=== PATIENT | female | born 1950 | race Asian ===

== ENCOUNTER 2023-11-28 09:54 | Inpatient (IN) | payer MEDICAID, OTHER ==
[~2023-11-28] VITALS: Ht 149.9 cm; Wt 40.3 kg
[2023-11-28 10:28] LABS: Urine Bacteria None Seen /hpf (None Seen); Urine WBC None Seen /hpf (0 - 5)
[2023-11-28 11:05] LABS: Basophils # (auto) 0.1 10 ^3/uL (0-0.2); Basophils % (auto) 1.2 % (0.0-2.0); Eosinophils # (auto) 0.1 10 ^3/uL (0-0.8); Eosinophils % (auto) 1.4 % (0.0-7.0); Hematocrit 41.7 % (36.0-46.0); Hemoglobin 13.9 g/dL (12.2-16.2); Lymphocytes # (auto) 1.8 10 ^3/uL (0.4-5.4); Lymphocytes % (auto) 34.8 % (10.0-50.0); Mean Corpuscular Hemoglobin 29.9 pg (28.0-32.0); Mean Corpuscular Hgb Conc. 33.4 g/dL (32.0-36.0); Mean Corpuscular Volume 89.7 fL (80.0-100.0); Monocytes # (auto) 0.4 10 ^3/uL (0-1.3); Monocytes % (auto) 7.2 % (0.0-12.0); Neutrophils # (auto) 2.9 10 ^3/uL (1.6-8.6); Neutrophils % (auto) 55.4 % (37.0-80.0); Red Blood Cells 4.65 10^6/uL (4.0-5.20); Red Cell Distribution Width 13.2 % (11.8-14.3); White Blood Cell 5.2 10^3/uL (4.4-10.8)
[2023-11-28 11:10] LABS: Alanine Aminotransferase 26 U/L (7-40); Alkaline Phosphatase 61 U/L (46-116); Anion Gap 9 (5-15); BUN/Creatinine Ratio 18.2 (10.0-20.0); Blood Urea Nitrogen 12 mg/dL (9-23); Calcium 9.5 mg/dL (8.7-10.4); Carbon Dioxide 27 mmol/L (20-30); Chloride 103 mmol/L (98-107); Glucose 187 mg/dL (74-106); Potassium 4.2 mmol/L (3.5-5.1); Sodium 139 mmol/L (136-145)
[2023-11-28 11:11] LABS: Albumin 4.6 g/dL (3.2-4.8); Aspartate Aminotransferase 22 U/L (13-40); Bilirubin, Total 1.2 mg/dL (0.2-1.0); Total Protein 7.2 g/dL (5.7-8.2)
[2023-11-28 11:19] LABS: Urine Blood Negative /uL (Negative); Urine Clarity Clear (Clear); Urine Color Colorless (Yellow); Urine Protein, UAD Negative (Negative); Urine Specific Gravity 1.005 (1.001-1.035); Urine Urobilinogen Normal (Negative); Urine pH 5.5 (5.0-9.0)
[2023-11-28] MEDS ORDERED: IRBE300T43 PO (13:28)
[2023-11-28] MEDS ORDERED: ISOS1TAB28 PO (13:28)
[2023-11-28] MEDS ORDERED: PANT40TA57 PO (13:28)
[2023-11-28] MEDS ORDERED: CARV3.1240 PO (13:28)
[2023-11-28] MEDS ORDERED: AMLO1TAB22 PO (13:28)
[2023-11-28] MEDS ORDERED: DILT-14 PO (13:28)
[2023-11-28] MEDS ORDERED: ROSU20TA56 PO (13:28)
[2023-11-28] MEDS ORDERED: MORPHINE SULFATE INJ 2 MG/ml SYRG IV PRN (13:30)
[2023-11-28] MEDS ORDERED: hydrALAZINE HCL 20 MG/ML VL IV PRN (13:30)
[2023-11-28] MEDS ORDERED: NITROGLYCERIN 0.4 MG SL TAB SL PRN (13:30)
[2023-11-28 13:53] LABS: Triglycerides 59 mg/dL (< 150)
[2023-11-28 13:54] LABS: LDL Cholesterol 59 mg/dL (< 100)
[2023-11-28 13:55] LABS: Cholesterol 144 mg/dL (< 200); HDL Cholesterol 68 mg/dL (40-59)
[2023-11-28] MEDS: CARVEDILOL 3.125 MG TAB PO SCH (22:00)
[2023-11-28] MEDS: ATORVASTATIN 20 MG TAB PO SCH (22:00)
[2023-11-29 04:23] LABS: Basophils # (auto) 0.1 10 ^3/uL (0-0.2); Basophils % (auto) 1.1 % (0.0-2.0); Eosinophils # (auto) 0.1 10 ^3/uL (0-0.8); Eosinophils % (auto) 1.8 % (0.0-7.0); Hematocrit 41.7 % (36.0-46.0); Hemoglobin 13.7 g/dL (12.2-16.2); Lymphocytes # (auto) 2.5 10 ^3/uL (0.4-5.4); Mean Corpuscular Hemoglobin 29.4 pg (28.0-32.0); Mean Corpuscular Volume 89.3 fL (80.0-100.0); Monocytes # (auto) 0.4 10 ^3/uL (0-1.3); Monocytes % (auto) 6.6 % (0.0-12.0); Neutrophils # (auto) 2.9 10 ^3/uL (1.6-8.6); Neutrophils % (auto) 48.5 % (37.0-80.0); Nucleated Red Blood Cells % 0.1 %; Red Blood Cells 4.67 10^6/uL (4.0-5.20); Red Cell Distribution Width 12.8 % (11.8-14.3)
[2023-11-29 04:50] LABS: Alanine Aminotransferase 21 U/L (7-40); Alkaline Phosphatase 54 U/L (46-116); Anion Gap 6 (5-15); BUN/Creatinine Ratio 16.7 (10.0-20.0); Blood Urea Nitrogen 11 mg/dL (9-23); Calcium 9.4 mg/dL (8.5-10.1); Carbon Dioxide 29 mmol/L (20-30); Chloride 105 mmol/L (98-107); Glucose 100 mg/dL (74-106); Potassium 4.4 mmol/L (3.5-5.1); Sodium 140 mmol/L (136-145)
[2023-11-29 04:51] LABS: Albumin 4.6 g/dL (3.2-4.8); Bilirubin, Total 1.2 mg/dL (0.2-1.0); Total Protein 7.4 g/dL (5.7-8.2)
[2023-11-29 04:55] LABS: Aspartate Aminotransferase 20 U/L (13-40)
[2023-11-29 09:07] VITALS: BP 150/64; PULSE 56; RESP 17; TEMP 98.2; O2SAT 99
[2023-11-29 09:16] VITALS: BP 150/64; PULSE 56; RESP 17; TEMP 98.2; O2SAT 99
[2023-11-29] MEDS: LOSARTAN POTASSIUM 50 MG TAB PO SCH (09:52)
[2023-11-29] MEDS: amLODIPine BESYLATE 5 MG TAB PO SCH (09:53)
[2023-11-29] MEDS: ISOSORBIDE MONONITRATE ER 60 MG TAB PO SCH (09:54)
[2023-11-29] MEDS ORDERED: dilTIAZem 120MG ER CAP PO SCH (10:00)
[2023-11-29] MEDS: PANTOPRAZOLE 40 MG TAB PO SCH (10:03)
[2023-11-29] MEDS: ASPirin 81 mg TAB PO SCH (10:03)
[2023-11-29] MEDS: ENOXAPARIN SOD 30 MG/0.3 ML SYRINGE SC SCH (10:04)
[2023-11-29] MEDS ORDERED: SUCR1TAB31 PO (11:01)
[2023-11-29 11:57] VITALS: BP 118/54; PULSE 61; RESP 17; TEMP 98.2; O2SAT 99
== END 2023-11-29 12:35 | disposition home or self-care (01) | DRG 392 ==
LOC: ER 09:54 → TELE 13:28 → TELE-E-ADS 11-29 08:57
PROVIDERS: ADMIT Registered Nurse; ATTEND Internal Medicine
DX: K21.9 Gastro-esophageal reflux disease without esophagitis (principal); I16.0 Hypertensive urgency; E78.5 Hyperlipidemia, unspecified; M81.0 Age-related osteoporosis without current pathological fracture; I25.10 Atherosclerotic heart disease of native coronary artery without angina pectoris; E07.9 Disorder of thyroid, unspecified; R73.9 Hyperglycemia, unspecified; Z95.5 Presence of coronary angioplasty implant and graft; Z79.899 Other long term (current) drug therapy
CPT/HCPCS: 36415; 71045; 80053; 80061; 81001; 83036; 84443; 84484; 85025; 93005; 93306; G0378

== ENCOUNTER 2024-03-02 13:53 | Emergency (ER) | payer OTHER ==
[~2024-03-02] VITALS: Ht 149.9 cm; Wt 38.0 kg
[~2024-03-02 13:53] MED LIST: AMLO1TAB22 PO; CARV3.1240 PO; DILT-14 PO; IRBE300T43 PO; ISOS1TAB28 PO; PANT40TA57 PO; ROSU20TA56 PO; SUCR1TAB31 PO
[2024-03-02 14:00] VITALS: BP 185/77; RESP 16; O2SAT 95
[2024-03-02 14:33] LABS: Basophils # (auto) 0 10 ^3/uL (0-0.2); Eosinophils # (auto) 0.1 10 ^3/uL (0-0.8); Eosinophils % (auto) 1.1 % (0.0-7.0); Hematocrit 44.2 % (36.0-46.0); Hemoglobin 14.8 g/dL (12.2-16.2); Lymphocytes # (auto) 1.7 10 ^3/uL (0.4-5.4); Lymphocytes % (auto) 34.4 % (10.0-50.0); Mean Corpuscular Hemoglobin 30.4 pg (28.0-32.0); Mean Corpuscular Hgb Conc. 33.4 g/dL (32.0-36.0); Mean Corpuscular Volume 90.9 fL (80.0-100.0); Monocytes # (auto) 0.4 10 ^3/uL (0-1.3); Monocytes % (auto) 7.2 % (0.0-12.0); Neutrophils # (auto) 2.8 10 ^3/uL (1.6-8.6); Neutrophils % (auto) 56.3 % (37.0-80.0); Platelet Count (auto) 180 10^3/uL (140-450); Red Blood Cells 4.86 10^6/uL (4.0-5.20); Red Cell Distribution Width 13.3 % (11.8-14.3)
[2024-03-02 14:51] LABS: Alanine Aminotransferase 15 U/L (7-40); Albumin 4.9 g/dL (3.2-4.8); Alkaline Phosphatase 67 U/L (46-116); Anion Gap 8 (5-15); Aspartate Aminotransferase 17 U/L (13-40); BUN/Creatinine Ratio 16.9 (10.0-20.0); Blood Urea Nitrogen 12 mg/dL (9-23); Calcium 9.6 mg/dL (8.7-10.4); Carbon Dioxide 29 mmol/L (20-30); Chloride 101 mmol/L (98-107); Glucose 128 mg/dL (74-106); Potassium 3.6 mmol/L (3.5-5.1); Sodium 138 mmol/L (136-145)
[2024-03-02 14:51] LABS: Urine Bacteria None Seen /hpf (None Seen)
[2024-03-02 14:52] LABS: Bilirubin, Total 1.5 mg/dL (0.2-1.0); Total Protein 7.4 g/dL (5.7-8.2)
[2024-03-02 15:13] LABS: Urine Blood Negative /uL (Negative); Urine Clarity Clear (Clear); Urine Color Colorless (Yellow); Urine Protein, UAD Negative (Negative); Urine Specific Gravity 1.004 (1.001-1.035); Urine Urobilinogen Normal (Negative); Urine WBC 1 /hpf (0 - 5); Urine pH 7.5 (5.0-9.0)
[2024-03-02 15:21] VITALS: PULSE 56
== END 2024-03-02 18:01 | disposition home or self-care (01) ==
LOC: ER 13:53
DX: R07.89 Other chest pain (principal); I10 Essential (primary) hypertension; Z79.899 Other long term (current) drug therapy
CPT/HCPCS: 36415; 71046; 80053; 81001; 83735; 84484; 85025; 93005

== ENCOUNTER 2024-05-18 13:22 | Emergency (ER) | payer OTHER ==
[~2024-05-18] VITALS: Ht 149.9 cm; Wt 139.7 kg
[2024-05-18 13:49] VITALS: TEMP 98.6
--- NOTE | 2024-05-18 14:10 | ED.PDOC ---
HPI Comments A 73 YEAR OLD FEMALE PRESENTS TO THE ED WITH COMPLAINT OF HIGH BLOOD PRESSURE. PATIENT STATES SHE HAS NOTICED HER BLOOD PRESSURE HAS BEEN HIGHER THAN USUAL FOR THE PAST 1 WEEK. PATIENT NOTES SHE HAS BEEN ANXIOUS AND HAS HAD MILD DIZZINESS WITH A HEADACHE OFF AN ON FOR THE PAST 1 WEEK. PATIENT REPORTS SHE HAS BEEN UNDER A LOT OF STRESS RECENTLY DUE TO HER SON GOING MISSING OVER THE LAST 1 WEEK. PATIENT DENIES SI, HI, FEVER, CHEST PAIN, SHORTNESS OF BREATH, ABDOMINAL PAIN, NAUSEA, VOMITING, OR OTHER COMPLAINTS. NO OTHER SYMPTOMS OR MODIFYING FACTORS AT THIS TIME. Chief Complaint: High Blood Pressure Time Seen by MD: 14:05 Reviewed Notes: Nurses Notes, Medications, Allergies Allergies: Coded Allergies: NO KNOWN ALLERGIES (Unverified , 11/28/23) Home Meds Active Scripts Sucralfate (CARAFATE) 1 Gm Tab, 1 GM PO BID for 30 Days, #60 TAB 1 Refill Prov:IDALIA ZAMBRANO MD 11/29/23 Reported Medications Diltiazem HCl Coated Beads (Diltiazem HCl ER) 120 Mg Cap, 1 CAP PO DAILY 11/28/23 Carvedilol (Carvedilol) 3.125 Mg Tab, 1 TAB PO BID 11/28/23 Pantoprazole Sodium Sesquihydr (Pantoprazole Sodium Dr) 40 Mg Tab, 1 TAB PO DAILY 11/28/23 Rosuvastatin Calcium (Rosuvastatin Calcium) 20 Mg Tab, 1 TAB PO HS 11/28/23 Irbesartan (IRBESARTAN) 300 Mg Tab, 1 TAB PO DAILY 11/28/23 Amlodipine Besylate (Amlodipine Besylate) 5 Mg Tab, 1 TAB PO DAILY 11/28/23 Isosorbide Mononitrate (Isosorbide Mononitrate Er) 30 Mg Tab, 1 TAB PO DAILY 11/28/23 Information Source: Patient Mode of Arrival: Ambulatory Severity: Moderate Timing: Hours Duration: Since onset, Intermittent, Days Prehospital treatment: None Quality: Aching Onset: At Rest Cardiac Risk Factors: Hyperlipidemia, HTN PE Risk Factors: None History of: Similar pain in past, None Modifying Factors: Nothing Associated Signs and Symptoms: Other (HIGH BLOOD PRESSURE) Past Medical History PAST MEDICAL HISTORY: Anxiety, High Lipids, HTN Surgical History: Denies all surgeries 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 Family History Family History: Reviewed,noncontributory to illness Social History Smoker: Non-Smoker Alcohol: Denies ETOH Use Drugs: Denies Drug Use Lives In: Home Constitutional: reports: others (ANXIETY ); denies: chills, diaphoresis, fatigue, fever, malaise, sweats, weakness EENTM: denies: blurred vision, double vision, ear bleeding, ear discharge, ear drainage, ear pain, ear ringing, eye pain, eye redness, hearing loss, mouth pain, mouth swelling, nasal discharge, nose bleeding, nose congestion, nose pain, photophobia, tearing, throat pain, throat swelling, voice changes, others Respiratory: denies: cough, hemoptysis, orthopnea, SOB at rest, shortness of breath, SOB with excertion, stridor, wheezing, others Cardiovascular: denies: chest pain, dizzy spells, diaphoresis, Dyspnea on exertion, edema, irregular heart beat, left arm pain, lightheadedness, palpitat ions, PND, syncope, others Gastrointestinal: denies: abdomen distended, abdominal pain, blood streaked bow els, constipated, diarrhea, dysphagia, difficulty swallowing, hematemesis, melena, nausea, poor appetite, poor fluid intake, rectal bleeding, rectal pain, vomiting, others Genitourinary: denies: abnormal vagina bleeding, burning, dyspareunia, dysuria, flank pain, frequency, hematuria, incontinence, pain, , vagina discharge, urgency, others Neurological: reports: dizziness, headache; denies: fainting, left sided num bness, left sided weakness, numbness, paresthesia, pre-existing deficit, right sided numbness, right sided weakness, seizure, speech problems, tingling, tremors, weakness, others Musculoskeletal: denies: back pain, gout, joint pain, joint swelling, muscle pain, muscle stiffness, neck pain, others Integumetry: denies: bruises, change in color, change in hair/nails, dryness, laceration, lesions, lumps, rash, wounds, others Allergic/Immunocompromised: denies: Difficulty Healing, Frequent Infections, Hives, Itching, others Hematologic/Lymphatic: denies: anemia, blood clots, easy bleeding, easy bruising, swollen glands, others Endocrine: denies: excessive hunger, excessive sweating, excessive thirst, excessive urination, flushing, intolerance to cold, intolerance to heat, unexplained weight gain, unexplained weight loss, others Psychiatric: reports: anxiety; denies: bipolar disorder, depression, hopeless, panic disorder, schizophrenia, sleepless, suicidal, others All Other Systems: Reviewed and Negative Physical Exam General Appearance: No Apparent Distress, Normal, Other (ANXIOUS) HEENT: Normal ENT Inspection, PERRL/EOMI Neck: Full Range of Motion, Non-Tender, Normal, Normal Inspection Respiratory: Chest Non-Tender, Lungs Clear, No Accessory Muscle Use, No Respiratory Distress, Normal Breath Sounds Cardiovascular: No Edema, No JVD, No Murmur, No Gallop, Normal Peripheral Pulses, Regular Rate/Rhythm Breast Exam: Deferred Gastrointestinal: No Organomegaly, Non Tender, No Pulsatile Mass, Normal Bowel Sounds, Soft Genitalia: Deferred Pelvic: Deferred Rectal: Deferred Extremities: No calf tenderness, Normal capillary refill, Normal inspection, Normal range of motion, Non-tender, No pedal edema Musculoskeletal : Apperance: Normal Neurologic: Alert, adon II-XII nml as Tested, No Motor Deficits, Normal Affect, Normal Mood, No Sensory Deficits Cerebellar Function: Normal Reflexes: Normal Skin: Dry, Normal Color, Warm Peripheral Pulses: 2+ carotid (R), 2+ carotid (L) Lymphatic: No Adenopathy Was a procedure done? Was a procedure done?: No CP Differential Dx Differential Diagnosis: Anxiety / Panic Attack, Hyperventilation Differential Diagnosis: HTN Accelerated, Other (UNCONTROLLED HYPERTENSION) X-Ray, Labs, Meds, VS Vital Signs Date Time Temp Pulse Resp B/P (MAP) Pulse Ox O2 Delivery O2 Flow Rate FiO2 05/18/24 15:11 52 16 165/68 (100) 98 05/18/24 13:49 98.6 68 14 196/97 (130) 99 98.6 05/18/24 13:49 68 14 99 Room Air 05/18/24 13:42 98.6 68 14 197/97 (130) 99 Lab Test 05/18/24 14:33 05/18/24 14:11 Range/Units Urine Color Light-yellow Yellow Urine Clarity Clear Clear Urine pH 7.0 5.0-9.0 Urine Specific [place] 1.002 1.001-1.035 Urine Protein Negative Negative Urine Ketones Negative Negative Urine Blood Negative Negative /uL Urine Nitrite Negative Negative Urine Bilirubin Negative Negative Urine Urobilinogen Normal Negative mg/dL Urine Leukocyte Esterase Negative Negative /uL Urine RBC <1 0 - 4 /hpf Urine WBC <1 0 - 5 /hpf Urine Squamous Epithelial Cells Few <5 /hpf Urine Bacteria None seen None Seen /hpf Urine Glucose Normal Normal mg/dL White Blood Count 5.3 4.4-10.8 10^3/uL Red Blood Count 4.66 4.0-5.20 10^6/uL Hemoglobin 13.7 12.2-16.2 g/dL Hematocrit 41.7 36.0-46.0 % Mean Corpuscular Volume 89.5 80.0-100.0 fL Mean Corpuscular Hemoglobin 29.3 28.0-32.0 pg Mean Corpuscular Hemoglobin Concent 32.8 32.0-36.0 g/dL Red Cell Distribution Width 12.9 11.8-14.3 % Platelet Count 185 140-450 10^3/uL Mean Platelet Volume 7.7 6.9-10.8 fL Neutrophils (%) (Auto) 53.4 37.0-80.0 % Lymphocytes (%) (Auto) 37.5 10.0-50.0 % Monocytes (%) (Auto) 6.9 0.0-12.0 % Eosinophils (%) (Auto) 1.2 0.0-7.0 % Basophils (%) (Auto) 1.0 0.0-2.0 % Neutrophils # (Auto) 2.9 1.6-8.6 10 ^3/uL Lymphocytes # (Auto) 2.0 0.4-5.4 10 ^3/uL Monocytes # (Auto) 0.4 0-1.3 10 ^3/uL Eosinophils # (Auto) 0.1 0-0.8 10 ^3/uL Basophils # (Auto) 0.1 0-0.2 10 ^3/uL Nucleated Red Blood Cells 0.1 % Sodium Level 141 136-145 mmol/L Potassium Level 4.5 3.5-5.1 mmol/L Chloride Level 103 98-107 mmol/L Carbon Dioxide Level 30 20-31 mmol/L Anion Gap 8 5-15 Blood Urea Nitrogen 10 9-23 mg/dL Creatinine 0.86 0.550-1.02 mg/dL Glomerular Filtration Rate Calc 72 >90 mL/min BUN/Creatinine Ratio 11.6 10.0-20.0 Serum Glucose 106 74-106 mg/dL Calcium Level 10.0 8.7-10.4 mg/dL Troponin I High Sensitivity 3 L </=34 ng/L EXAM: CT HEAD WITHOUT CONTRAST INDICATION: HTN AND HEAD PAIN TECHNIQUE: CT of the head without intravenous contrast. Radiation Dose Information: CT Dose: CTDI volume is 53.06 mGy. Dose-length product is 939.56 mGy*cm The dose indicators for CT are the volume Computed Tomography (CT) Dose Index (CTDIvol) and the Dose Length Product (DLP), and are measured in units of mGy and mGy-cm, respectively. These indicators are not patient dose, but values generated from the CT scanner acquisition factors. The report includes radiation exposure data for exposures received during this examination. COMPARISON: None FINDINGS: There is no evidence of acute intracranial hemorrhage, extra-axial collection, mass effect, midline shift, herniation or hydrocephalus. The ventricles, sulci and cisterns are age appropriate. The flower-white differentiation is intact. Patchy periventricular and subcortical white matter hypoattenuation is nonspecific but may be related to small vessel ischemic disease. 15 mm polyp or inclusion cyst left maxillary sinus sinuses and mastoid air cells are clear. The surrounding soft tissues and osseous structures are unremarkable. IMPRESSION: 1. No acute intracranial hemorrhage. 2. No CT findings of territorial ischemia. 3. 15 mm inclusion cyst or polyp left maxillary sinus. ATED BY: DANNY TAVERAS Jr., DO DICTATED DATE/TIME: 05/18/24 1430 SIGNED BY: DANNY TAVERAS Jr., SIGNED DATE/TIME: 05/18/24 1430 CC: X-Ray, Labs, Meds, VS Comment LABS ORDERED: CBC, BMP, TROPONIN, UA REVIEWED AND INTERPRETED RESULTS: NORMAL INDEPENDENT HISTORIANS: NONE DISCUSSED TREATMENT AND RESULTS WITH MEDICAL PERSONNEL. PATIENT'S BLOOD PRESSURE WAS NOTED TO HAVE DECREASED WHEN RECHECKED. I HAVE DISCUSSED IMAGING AND LAB RESULTS WITH PATIENT. PATIENT ALERT AND ORIENTED AT THIS TIME AND IS SAFE TO DISCHARGE UNDER DIAGNOSIS OF HYPERTENSION AND ANXIETY REACTION. PATIENT IS INSTRUCTED TO FOLLOW UP WITH THEIR PCP IN 1-2 DAYS. THE PATIENT FULLY UNDERSTANDS THEIR RESULTS AND ARE AWARE THEY NEED TO FOLLOW UP WITH THEIR PCP FOR FURTHER EVALUATION IF THEIR SYMPTOMS PERSIST. Images Reviewed?: Images reviewed and evaluated by me Time of 1ST Reevaluation: 15:20 Reevaluation 1ST: Improved Patient Education/Counseling: Diagnosis, Treatment, Need For Follow Up Family Education/Counseling: Diagnosis, Treatment, Need For Follow Up Medical Screening: No EMC Exist At This Time Departure 1 Departure Time of Disposition: 15:30 Impression: Primary Impression: Hypertension Qualified Codes: I10 - Essential (primary) hypertension Additional Impression: Anxiety reaction Disposition: HOME / SELF CARE / HOMELESS Condition: Stable Additional Instructions: FOLLOW-UP WITH PCP IN 1 TO 2 DAYS. RETURN TO ED FOR ANY NEW OR WORSENING SYMPTOMS. Discharged With: Self, Relative Critical Care Note Critical Care Time?: No Stability Stability form required: No Heart Score Heart Score: Heart Score Response (Comments) Value History Slightly Suspicious 0 EKG Normal 0 Age >65 2 Risk Factors No known risk factors 0 Troponin Normal limit 0 Total 2 I personally scribed for RIGOBERTO SAMUEL PA ([email or web address]) on 05/18/24 at 14:10. Electronically submitted by Sam Mccann ([email or web address]). I personally scribed for RIGOBERTO SAMUEL PA ([email or web address]) on 05/18/24 at 14:36. Electronically submitted by Sam Mccann ([email or web address]). I personally scribed for KOKO SAMUELA PA ([email or web address]) on 05/18/24 at 15:33. Electronically submitted by Sam Mccann ([email or web address]). I personally scribed for RIGOBERTO SAMUEL PA ([email or web address]) on 05/18/24 at 15:46. Electronically submitted by Sam Mccann ([email or web address]). RIGOBERTO SAMUEL May 18, 2024 14:10
[2024-05-18 14:22] LABS: Basophils # (auto) 0.1 10 ^3/uL (0-0.2); Eosinophils # (auto) 0.1 10 ^3/uL (0-0.8); Eosinophils % (auto) 1.2 % (0.0-7.0); Hematocrit 41.7 % (36.0-46.0); Hemoglobin 13.7 g/dL (12.2-16.2); Lymphocytes % (auto) 37.5 % (10.0-50.0); Mean Corpuscular Hemoglobin 29.3 pg (28.0-32.0); Mean Corpuscular Hgb Conc. 32.8 g/dL (32.0-36.0); Mean Corpuscular Volume 89.5 fL (80.0-100.0); Monocytes # (auto) 0.4 10 ^3/uL (0-1.3); Monocytes % (auto) 6.9 % (0.0-12.0); Neutrophils # (auto) 2.9 10 ^3/uL (1.6-8.6); Neutrophils % (auto) 53.4 % (37.0-80.0); Nucleated Red Blood Cells % 0.1 %; Platelet Count (auto) 185 10^3/uL (140-450); Red Blood Cells 4.66 10^6/uL (4.0-5.20); Red Cell Distribution Width 12.9 % (11.8-14.3); White Blood Cell 5.3 10^3/uL (4.4-10.8)
--- NOTE | 2024-05-18 14:32 | DVH ---
EXAM: CT HEAD WITHOUT CONTRAST INDICATION: HTN AND HEAD PAIN TECHNIQUE: CT of the head without intravenous contrast. Radiation Dose Information: CT Dose: CTDI volume is 53.06 mGy. Dose-length product is 939.56 mGy*cm The dose indicators for CT are the volume Computed Tomography (CT) Dose Index (CTDIvol) and the Dose Length Product (DLP), and are measured in units of mGy and mGy-cm, respectively. These indicators are not patient dose, but values generated from the CT scanner acquisition factors. The report includes radiation exposure data for exposures received during this examination. COMPARISON: None FINDINGS: There is no evidence of acute intracranial hemorrhage, extra-axial collection, mass effect, midline s hift, herniation or hydrocephalus. The ventricles, sulci and cisterns are age appropriate. The flower-white differentiation is intact. Patchy periventricular and subcortical white matter hypoattenuation is nonspecific but may be related to small vessel ischemic disease. 15 mm polyp or inclusion cyst left maxillary sinus sinuses and mastoid air cells are clear. The surrounding soft tissues and osseous structures are unremarkable. IMPRESSION: 1. No acute intracranial hemorrhage. 2. No CT findings of territorial ischemia. 3. 15 mm inclusion cyst or polyp left maxillary sinus.
[2024-05-18 14:35] LABS: Urine Bacteria None Seen /hpf (None Seen)
[2024-05-18 14:42] LABS: Chloride 103 mmol/L (98-107); Potassium 4.5 mmol/L (3.5-5.1); Sodium 141 mmol/L (136-145)
[2024-05-18 14:43] LABS: Anion Gap 8 (5-15); Carbon Dioxide 30 mmol/L (20-31)
[2024-05-18 14:48] LABS: BUN/Creatinine Ratio 11.6 (10.0-20.0); Blood Urea Nitrogen 10 mg/dL (9-23); Glucose 106 mg/dL (74-106)
[2024-05-18 15:01] LABS: Urine Blood Negative /uL (Negative); Urine Clarity Clear (Clear); Urine Protein, UAD Negative (Negative); Urine Specific Gravity 1.002 (1.001-1.035); Urine Urobilinogen Normal (Negative); Urine WBC <1 /hpf (0 - 5)
[2024-05-18 15:02] LABS: Urine Color Light-Yellow (Yellow)
[2024-05-18 15:11] VITALS: BP 165/68; PULSE 52; RESP 16; O2SAT 98
--- NOTE | 2024-05-22 12:25 | ECG ---
[facility] Test Date: 2024-05-18 Test Time: 13:36:20 Pat Name: JAIME LEÓN Department: ED Room: Gender: F Credit Administrator: DICK : 1950 Requested By: RIGOBERTO SAMUEL Order Number: [id number] Reading MD: Cesar Monique Measurements Intervals [place] Rate: 64 P: 65 [place]: 162 QRS: 72 QRSD: 76 T: -23 QT: 379 QTc: 391 Interpretive Statements Sinus rhythm Probable LVH with secondary repol abnrm Anterior Q waves, possibly due to LVH Electronically Signed On 05-24-2024 13:34:48 PST by Cesar Monique Please click the below link to view image of tracing.
--- NOTE | 2024-05-26 13:04 | ECG ---
[facility] Test Date: 2024-05-18 Test Time: 14:57:04 Pat Name: JAIME LEÓN Department: ERFT Room: Gender: F Chiropractic Doctor: [id number] : 1950 Requested By: RIGOBERTO SAMUEL Order Number: [id number] Reading MD: Measurements Intervals [place] Rate: 57 P: 69 [place]: 164 QRS: 68 QRSD: 87 T: 57 QT: 443 QTc: 432 Interpretive Statements Sinus rhythm Consider left ventricular hypertrophy Please click the below link to view image of tracing.
--- NOTE | 2024-05-26 13:04 | ECG ---
[facility] Test Date: 2024-05-18 Test Time: 14:57:58 Pat Name: JAIME LEÓN Department: ERFT Room: Gender: F Relationship Consultant: [id number] : 1950 Requested By: RIGOBERTO SAMUEL Order Number: [id number] Reading MD: Measurements Intervals [place] Rate: 53 P: 68 [place]: 164 QRS: 68 QRSD: 86 T: 46 QT: 444 QTc: 417 Interpretive Statements Sinus rhythm Consider left ventricular hypertrophy Please click the below link to view image of tracing.
== END 2024-05-18 15:59 | disposition home or self-care (01) ==
LOC: ER 13:22
DX: F41.1 Generalized anxiety disorder (principal); I10 Essential (primary) hypertension; E78.5 Hyperlipidemia, unspecified; Z79.899 Other long term (current) drug therapy
CPT/HCPCS: 36415; 70450; 80048; 81001; 84484; 85025; 93005

== ENCOUNTER 2024-07-05 07:02 | Inpatient (IN) | payer OTHER ==
[~2024-07-05] VITALS: Ht 149.9 cm; Wt 40.2 kg
--- NOTE | 2024-07-05 07:36 | ED.PDOC ---
HPI Comments 73 year old female presents to the ED with chief complaint of chest pain. Patient reports that she has been experiencing left sided chest pain with radiation to the back and left arm since last night. Patient relays that her pain made it difficult to sleep as it lasted all night. Patient denies any N/V, SOB, cough, fever, chills, headache, numbness, or weakness. Chief Complaint: Chest Pain Time Seen by MD: 07:33 Reviewed Notes: Nurses Notes, Medications, Allergies Allergies: Coded Allergies: NO KNOWN ALLERGIES (Unverified , 11/28/23) Home Meds Active Scripts Sucralfate (CARAFATE) 1 Gm Tab, 1 GM PO BID for 30 Days, #60 TAB 1 Refill Prov:IDALIA ZAMBRANO MD 11/29/23 Reported Medications Diltiazem HCl Coated Beads (Diltiazem HCl ER) 120 Mg Cap, 1 CAP PO DAILY 11/28/23 Carvedilol (Carvedilol) 3.125 Mg Tab, 1 TAB PO BID 11/28/23 Pantoprazole Sodium Sesquihydr (Pantoprazole Sodium Dr) 40 Mg Tab, 1 TAB PO DAILY 11/28/23 Rosuvastatin Calcium (Rosuvastatin Calcium) 20 Mg Tab, 1 TAB PO HS 11/28/23 Irbesartan (IRBESARTAN) 300 Mg Tab, 1 TAB PO DAILY 11/28/23 Amlodipine Besylate (Amlodipine Besylate) 5 Mg Tab, 1 TAB PO DAILY 11/28/23 Isosorbide Mononitrate (Isosorbide Mononitrate Er) 30 Mg Tab, 1 TAB PO DAILY 11/28/23 Information Source: Patient Mode of Arrival: Ambulatory Severity: Moderate Timing: Hours Duration: Since onset Prehospital treatment: None Location: Chest (L) Radiation: Back, Arm (L) Quality: Stabbing Onset: At Rest Cardiac Risk Factors: HTN PE Risk Factors: None History of: Similar pain in past Associated Signs and Symptoms: None Past Medical History PAST MEDICAL HISTORY: Anxiety, GERD, High Lipids, HTN, Thyroid Surgical History: Denies all surgeries 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 STORE MANAGER Hx Family History Family History: Reviewed,noncontributory to illness Social History Smoker: Non-Smoker Alcohol: Denies ETOH Use Drugs: Denies Drug Use Lives In: Home Constitutional: denies: chills, diaphoresis, fatigue, fever, malaise, sweats, weakness, others EENTM: denies: blurred vision, double vision, ear bleeding, ear discharge, ear drainage, ear pain, ear ringing, eye pain, eye redness, hearing loss, mouth pain, mouth swelling, nasal discharge, nose bleeding, nose congestion, nose pain, photophobia, tearing, throat pain, throat swelling, voice changes, others Respiratory: denies: cough, hemoptysis, orthopnea, SOB at rest, shortness of breath, SOB with excertion, stridor, wheezing, others Cardiovascular: reports: chest pain; denies: dizzy spells, diaphoresis, Dyspnea on exertion, edema, irregular heart beat, left arm pain, lightheadedness, palpitations, PND, syncope, others Gastrointestinal: denies: abdomen distended, abdominal pain, blood streaked bowels, constipated, diarrhea, dysphagia, difficulty swallowing, hematemesis, melena, nausea, poor appetite, poor fluid intake, rectal bleeding, rectal pain, vomiting, others Genitourinary: denies: abnormal vagina bleeding, burning, dyspareunia, dysuria, flank pain, frequency, hematuria, incontinence, pain, , vagina discharge, urgency, others Neurological: denies: dizziness, fainting, headache, left sided numbness, left sided weakness, numbness, paresthesia, pre-existing deficit, right sided numbness, right sided weakness, seizure, speech problems, tingling, tremors, weakness, others Musculoskeletal: denies: back pain, gout, joint pain, joint swelling, muscle pain, muscle stiffness, neck pain, others Integumetry: denies: bruises, change in color, change in hair/nails, dryness, laceration, lesions, lumps, rash, wounds, others Allergic/Immunocompromised: denies: Difficulty Healing, Frequent Infections, Hives, Itching, others Hematologic/Lymphatic: denies: anemia, blood clots, easy bleeding, easy bruising, swollen glands, others Endocrine: denies: excessive hunger, excessive sweating, excessive thirst, excessive urination, flushing, intolerance to cold, intolerance to heat, unexplained weight gain, unexplained weight loss, others Psychiatric: denies: anxiety, bipolar disorder, depression, hopeless, panic disorder, schizophrenia, sleepless, suicidal, others All Other Systems: Reviewed and Negative Physical Exam General Appearance: Moderate Distress, Thin HEENT: Normal ENT Inspection, PERRL/EOMI Neck: Full Range of Motion, Non-Tender, Normal, Normal Inspection Respiratory: Chest Non-Tender, Lungs Clear, No Accessory Muscle Use, No Respiratory Distress, Normal Breath Sounds Cardiovascular: No Edema, No JVD, No Murmur, No Gallop, Normal Peripheral Pulses, Regular Rate/Rhythm Breast Exam: Deferred Gastrointestinal: No Organomegaly, Non Tender, No Pulsatile Mass, Normal Bowel Sounds, Soft Genitalia: Deferred Pelvic: Deferred Rectal: Deferred Extremities: No calf tenderness, Normal capillary refill, Normal inspection, Normal range of motion, Non-tender, No pedal edema Musculoskeletal : Apperance: Normal Neurologic: Alert, operating cost clerk II-XII nml as Tested, No Motor Deficits, Normal Affect, Normal Mood, No Sensory Deficits Cerebellar Function: Normal Reflexes: Normal Skin: Dry, Normal Color, Warm Peripheral Pulses: 3+ Radial (R), 3+ Radial (L) Lymphatic: No Adenopathy Was a procedure done? Was a procedure done?: No CP Differential Dx Differential Diagnosis: A-fib, A-Flutter, Angina, Anxiety / Panic Attack, Atrial Dysrhythmia, Electrolyte Disorder X-Ray, Labs, Meds, VS Vital Signs Date Time Temp Pulse Resp B/P (MAP) Pulse Ox O2 Delivery O2 Flow Rate FiO2 07/05/24 07:08 64 07/05/24 07:05 97.5 84 18 161/106 (124) 97 Lab Test 07/05/24 07:15 Range/Units Troponin I High Sensitivity Pending Patient alert. Complaining of chest pain. Blood pressure elevated. Saturation pristine on room air. Continues to have chest pain. History of GERD. Reviewed her previous visit. Was given aspirin. Was given clonidine. Explained to the patient. Continue cardiac monitoring. EKG reviewed does not show any acute changes. Time of 1ST Reevaluation: 08:33 Reevaluation 1ST: Unchanged Patient Education/Counseling: Diagnosis, Treatment Family Education/Counseling: No Family Present Additional Information I reviewed the following notes from patient's past medical encounters: 05/18/24 for uncontrolled HTN The following tests were ordered, and results were reviewed by me: CXR, CBC, BMP, UA, Troponin, EKG Additional Information was gathered from interviewing the following independent historians: None I reviewed and agreed with the following test results read by other providers: CXR I discussed treatment and results with medical personnel. Departure 1 Departure Time of Disposition: 07:42 Impression: Primary Impression: Chest pain of unknown etiology Additional Impressions: Uncontrolled diabetes mellitus Qualified Codes: E13.65 - Other specified diabetes mellitus with hyperglycemia Uncontrolled hypertension Disposition: ADMITTED INPATIENT Admit to: Med Surg Condition: Guarded Critical Care Note Critical Care Time?: Yes (45 min-critical care time only) Stability Stability form required: No Heart Score Heart Score: Heart Score Response (Comments) Value History Highly Suspicious 2 EKG Normal 0 Age >65 2 Risk Factors >3 or Hx ASHD 2 Troponin Normal limit 0 Total 6 I personally scribed for YURI GONZALES MD ([email or web address]) on 07/05/24 at 07:36. Electronically submitted by Alfie Celis ([email or web address]). YURI GONZALES MD Jul 05, 2024 07:36
[2024-07-05] MEDS: ASPirin 325 MG TAB PO ONE (08:21)
[2024-07-05] MEDS: cloNIDine HCL 0.1 MG TAB PO ONE (08:22)
[2024-07-05 08:57] LABS: Basophils # (auto) 0 10 ^3/uL (0-0.2); Basophils % (auto) 0.8 % (0.0-2.0); Eosinophils # (auto) 0.1 10 ^3/uL (0-0.8); Eosinophils % (auto) 2.1 % (0.0-7.0); Hematocrit 44.1 % (36.0-46.0); Hemoglobin 14.5 g/dL (12.2-16.2); Lymphocytes # (auto) 2.6 10 ^3/uL (0.4-5.4); Mean Corpuscular Hemoglobin 29.5 pg (28.0-32.0); Mean Corpuscular Hgb Conc. 32.9 g/dL (32.0-36.0); Mean Corpuscular Volume 89.5 fL (80.0-100.0); Monocytes # (auto) 0.3 10 ^3/uL (0-1.3); Monocytes % (auto) 6.4 % (0.0-12.0); Neutrophils # (auto) 2.4 10 ^3/uL (1.6-8.6); Neutrophils % (auto) 43.7 % (37.0-80.0); Nucleated Red Blood Cells % 0.2 %; Platelet Count (auto) 192 10^3/uL (140-450); Red Blood Cells 4.93 10^6/uL (4.0-5.20); Red Cell Distribution Width 13.2 % (11.8-14.3); White Blood Cell 5.5 10^3/uL (4.4-10.8)
[2024-07-05 10:05] LABS: Urine Bacteria None Seen /hpf (None Seen)
[2024-07-05 10:27] LABS: Urine Blood Negative /uL (Negative); Urine Clarity Clear (Clear); Urine Color Colorless (Yellow); Urine Protein, UAD Negative (Negative); Urine Specific Gravity 1.009 (1.001-1.035); Urine Squamous Epithelial Cell FEW /hpf (<5); Urine Urobilinogen Normal (Negative); Urine WBC <1 /hpf (0 - 5)
[2024-07-05 11:19] LABS: Chloride 103 mmol/L (98-107); Potassium 3.9 mmol/L (3.5-5.1); Sodium 139 mmol/L (136-145)
[2024-07-05 11:20] LABS: Anion Gap 6 (5-15); Calcium 9.9 mg/dL (8.7-10.4); Carbon Dioxide 30 mmol/L (20-31)
[2024-07-05 11:25] LABS: BUN/Creatinine Ratio 13.3 (10.0-20.0); Blood Urea Nitrogen 10 mg/dL (9-23)
[2024-07-05 11:28] LABS: Glucose 118 mg/dL (74-106)
[2024-07-05 12:55] VITALS: RESP 16; O2SAT 98
[2024-07-05] MEDS ORDERED: MORPHINE SULFATE 4 MG/ML SYR/VIAL IV PRN (13:15)
[2024-07-05] MEDS ORDERED: NITROGLYCERIN 0.4 MG SL TAB SL PRN ×2 (13:15)
[2024-07-05] MEDS ORDERED: ONDANSETRON HCL 4 MG/2 ML VIAL IV PRN (13:15)
[2024-07-05] MEDS ORDERED: MORPHINE SULFATE INJ 2 MG/ml SYRG IV PRN (13:15)
--- NOTE | 2024-07-05 13:21 | DVHHP2 ---
History of Present Illness Reason for Visit: Chest pain History of Present Illness Yohana Parson is a 73-year-old female with past medical history of CAD status post PCI in [address] [facility], hypertension, hyperlipidemia, osteoporosis, anxiety, GERD, hypothyroidism who presents to the ED today for chest pain that started at 3:00 a.m.. Patient reports that the chest pain radiates her left arm causes numbness and also reports neck pain. She reports the chest pain being 4/10 stabbing and intermittent in nature. She states that there are no triggering or alleviating factors. She does state that she was unable to sleep last night. She denies any recent sick contacts any recent illnesses, denies shortness of breath, nausea, vomiting, diarrhea, abdominal pain, lightheadedness, fever, chills, and dizziness. Patient reports that she takes amlodipine, carvedilol, and isosorbide 1 necessary but not consistently. Cardiovascular: CAD, HTN, hyperipidemia GI: GERD Psych: Anxiety Endocrine: Hypothyroidism, Osteoporosis Past Surgical History: Other Past Surgical History PCI in 2016 Family History: DM, Other (Aunt and cousins with diabetes) Smoke: No ALCOHOL: none Drugs: None Lives: with Family Domestic Violence: Neg Review of Systems Constitutional: No: Fever, Chills, Sweats, Weakness, Malaise, Other Eyes: No: Pain, Vision change, Conjunctivae inflammation, Eyelid inflammation, Other, Redness ENT: No: Ear pain, Ear discharge, Nose pain, Nose discharge, Nose congestion, Mouth pain, Mouth swelling, Throat pain, Throat swelling, Other Respiratory: No: Cough, Dry, Shortness of breath, SOB with excertion, Wheezing, Hemoptysis, Pleuritic Pain, Sputum, Wheezing, Other Cardiovascular: Chest Pain; No: Palpitations, Orthopnea, Paroxysmal Noc. Dyspnea, Edema, Lt Headedness, Other Gastrointestinal: No: Nausea, Vomiting, Abdominal Pain, Diarrhea, Constipation, Melena, Hematochezia, Other Genitourinary: No Dysuria, No Frequency, No Incontinence, No Hematuria, No Retention, No Other Musculoskeletal: neck pain, arm pain; No: other, shoulder pain, back pain, hand pain, leg pain, foot pain Skin: No: Rash, Lesions, Jaundice, Bruising, Other Neurological: No: Weakness, Numbness, Incoordination, Change in speech, Confusion, Seizures, Other Allergies: Coded Allergies: NO KNOWN ALLERGIES (Unverified , 11/28/23) Exam Vital Signs Vital Signs Date Time Temp Pulse Resp B/P (MAP) Pulse Ox O2 Delivery O2 Flow Rate FiO2 07/05/24 12:55 16 98 Room Air* 0 21 07/05/24 12:50 98.0 58 117/69 (85) 98.0 General Appearance: Alert, Oriented X3, Cooperative, No acute distress HEENT: Atraumatic, PERRLA, EOMI, Mucous membr. moist/pink Respiratory: Clear to auscultation, Normal air movement Cardiovascular: Normal S1, Normal S2, No murmurs Abdominal: Normal bowel sounds, Soft, No tenderness, No hepatospenomegaly, No masses Extremities: No clubbing, No cyanosis, No edema, Normal pulses, No tenderness/swelling Skin: No rashes, No breakdown, No significant lesion Neuro: Normal gait, Normal speech, Strength at 5/5 X4 ext, Normal tone, Sensation intact Psych/Mental Status: Mental status NL, Mood NL Labs/Xrays Labs Test 07/05/24 11:50 07/05/24 10:19 07/05/24 08:37 07/05/24 08:27 Range/Units POC Glucose 144 H 70-106 mg/dl Troponin I High Sensitivity 3 L </=34 ng/L White Blood Count 5.5 4.4-10.8 10^3/uL Red Blood Count 4.93 4.0-5.20 10^6/uL Hemoglobin 14.5 12.2-16.2 g/dL Hematocrit 44.1 36.0-46.0 % Mean Corpuscular Volume 89.5 80.0-100.0 fL Mean Corpuscular Hemoglobin 29.5 28.0-32.0 pg Mean Corpuscular Hemoglobin Concent 32.9 32.0-36.0 g/dL Red Cell Distribution Width 13.2 11.8-14.3 % Platelet Count 192 140-450 10^3/uL Mean Platelet Volume 8.4 6.9-10.8 fL Neutrophils (%) (Auto) 43.7 37.0-80.0 % Lymphocytes (%) (Auto) 47.0 10.0-50.0 % Monocytes (%) (Auto) 6.4 0.0-12.0 % Eosinophils (%) (Auto) 2.1 0.0-7.0 % Basophils (%) (Auto) 0.8 0.0-2.0 % Neutrophils # (Auto) 2.4 1.6-8.6 10 ^3/uL Lymphocytes # (Auto) 2.6 0.4-5.4 10 ^3/uL Monocytes # (Auto) 0.3 0-1.3 10 ^3/uL Eosinophils # (Auto) 0.1 0-0.8 10 ^3/uL Basophils # (Auto) 0 0-0.2 10 ^3/uL Nucleated Red Blood Cells 0.2 % Urine Color Colorless Yellow Urine Clarity Clear Clear Urine pH 7.0 5.0-9.0 Urine Specific [place] 1.009 1.001-1.035 Urine Protein Negative Negative Urine Ketones Negative Negative Urine Blood Negative Negative /uL Urine Nitrite Negative Negative Urine Bilirubin Negative Negative Urine Urobilinogen Normal Negative mg/dL Urine Leukocyte Esterase Negative Negative /uL Urine RBC 1 0 - 4 /hpf Urine WBC <1 0 - 5 /hpf Urine Squamous Epithelial Cells Few <5 /hpf Urine Bacteria None seen None Seen /hpf Urine Glucose Normal Normal mg/dL Test 07/05/24 08:13 Range/Units Sodium Level 139 136-145 mmol/L Potassium Level 3.9 3.5-5.1 mmol/L Chloride Level 103 98-107 mmol/L Carbon Dioxide Level 30 20-31 mmol/L Anion Gap 6 5-15 Blood Urea Nitrogen 10 9-23 mg/dL Creatinine 0.75 0.550-1.02 mg/dL Glomerular Filtration Rate Calc 85 >90 mL/min BUN/Creatinine Ratio 13.3 10.0-20.0 Serum Glucose 118 H 74-106 mg/dL Calcium Level 9.9 8.7-10.4 mg/dL Assessment/Plan Assessment/Plan Assessment/Plan: Atypical chest pain rule out ACS History of CAD status post PCI in 2016 at [facility] in [place] Bradycardia UA negative Clonidine Aspirin EKG Troponin negative x3 ACS protocol Aspirin Statin MISTY Lipid panel TSH UDS Last echo 11/29/2023 EF 55% Echo ordered Labs A.m. labs Cardiology consult cxr VINCE score 5 Heart score 6 moderate Chronic hypertension Continue home medications Chronic hyperlipidemia Continue home medications Chronic osteoporosis Continue home medications Chronic anxiety Continue home medications History of GERD Continue home medications History of hypothyroidism Continue home medications FEN/PPX Diet HL DVT prophylaxis not indicated patient ambulating PUD prophylaxis - protonix Admit to tele Home medications reconciled Discussed plan of care with patient and nurse Plan discussed with: Patient My Orders Orders - BENI DESAI Procedure Category Date Status Time Admit ADMIT 07/05/24 Verified 13:01 Code Status CODE 07/05/24 Verified 13:01 Vital Signs VIKASH 07/05/24 Verified 13:01 Bioanalyst VIKASH 07/05/24 Verified 13:01 Cardiac DIET 07/05/24 Verified Diet-2gna,Lofat,Lochol Lunch Aspirin Tablet PHA 07/06/24 Verified 10:00 Lipitor 40mg Hs PHA 07/05/24 Verified Hi-Intensity 22:00 Morphine Sulfate PHA 07/05/24 Verified Injection 13:15 Acetaminophen Tablet PHA 07/05/24 Verified (Tylenol Tablet) 13:15 Complete Blood Count LAB 07/06/24 Verified 04:00 Comprehensive LAB 07/06/24 Verified Metabolic Panel 04:00 Echo 2d Mode Cardiac US 07/05/24 Verified DOP 13:01 Nitroglycerin PHA 07/05/24 Verified Sublingual (Ntrostat 13:15 Ondansetron Hcl PHA 07/05/24 Verified (Zofran) 13:15 Electrocardigram EKG 07/06/24 Verified 04:00 Troponin-I Hs LAB 07/05/24 Verified 13:01 Cardiac VIKASH 07/05/24 Verified Rehabilitation - Outpa Nitroglycerin PHA 07/05/24 Verified Sublingual (Ntrostat 13:15 Morphine Sulfate PHA 07/05/24 Verified Injection 13:15 Stat Ekg For Chest [facility] 07/05/24 Verified Pain 13:01 Notify Md Of Changes [facility] 07/05/24 Verified From Base 13:01 Slp Teacher For VIKASH 07/05/24 Verified 24 Hours 13:01 Emergency Dysrhythmia VIKASH 07/05/24 Verified Protocol 13:01 Rhythm Strips Once [facility] 07/05/24 Verified Every Shift 13:01 Oxygen By Nasal RT 07/05/24 Verified Cannula 13:01 Lipid Panel LAB 07/05/24 Verified 13:01 Thyroid Stimulating LAB 07/05/24 Verified Hormone 13:01 Drug Screen LAB 07/05/24 Verified 13:01 Date of Service: Jul 05, 2024 Billing Provider: THON,SALINA K MANAGER INVENTORY MANAGEMENT Common Visit Codes: 59120-[id number] INP/OBS CARE (HIGH) BENI DESAI MANAGER INVENTORY MANAGEMENT Jul 05, 2024 13:21
--- NOTE | 2024-07-05 13:38 | DVH ---
EXAM: XY CHEST XRAY 1 VIEW Indication: chest pain Technique: Single frontal view of the chest was obtained Comparison: XY CHEST PORTABLE on DOS: 11/28/23 FINDINGS: Lines and Tubes: None Lungs: No focal consolidation. Pleura: No effusion. No pneumothorax. Cardiomediastinal contours: Unremarkable Bones: No acute osseous abnormality. IMPRESSION: No acute cardiopulmonary disease.
[2024-07-05 13:49] LABS: Triglycerides 99 mg/dL (< 150)
[2024-07-05 13:50] LABS: LDL Cholesterol 70 mg/dL (< 100)
[2024-07-05 13:51] LABS: Cholesterol 168 mg/dL (< 200)
[2024-07-05 13:53] LABS: HDL Cholesterol 85 mg/dL (40-59)
[2024-07-05 15:15] LABS: Amphetamine Screen, Urine Neg (NEGATIVE); Barbiturate Scree,Urine Neg (NEGATIVE); Benzodiazephine Screen, Urine Neg (NEGATIVE); Cannabinoid Screen, Urine Neg (NEGATIVE); Cocaine Screen, Urine Neg (NEGATIVE); Opiate Scree,Urine Neg (NEGATIVE); Phencyclidine Screen, Urine Neg (NEGATIVE)
[2024-07-05 21:00] VITALS: BP 130/42; PULSE 54; RESP 15; TEMP 98.1; O2SAT 98
[2024-07-05 21:36] VITALS: PULSE 58; RESP 16; O2SAT 100
[2024-07-05 21:44] VITALS: BP 134/45; PULSE 54; RESP 16; TEMP 98.1; O2SAT 98
[2024-07-05] MEDS: ATORVASTATIN 20 MG TAB PO SCH (22:57)
[2024-07-06] VITALS (8 sets, daily range): BP systolic 120–153; BP diastolic 40–58; PULSE 49–67; RESP 16–18; TEMP 97.6–98; O2SAT 97–99
--- NOTE | 2024-07-06 03:17 | ECG ---
[facility] Test Date: 2024-07-05 Test Time: 07:08:02 Pat Name: JAIME LEÓN Department: ER Room: [facility]1T A Gender: F Program Instructor: DENNY : 1950 Requested By: YURI GONZALES Order Number: [id number] Reading MD: Cesar Monique Measurements Intervals [place] Rate: 64 P: 0 W[place]: 0 QRS: 71 QRSD: 76 T: -66 QT: 399 QTc: 412 Interpretive Statements Atrial flutter with predominant 4:1 AV block Consider left ventricular hypertrophy Anterior Q waves, possibly due to LVH Borderline T abnormalities, inferior leads Baseline wander in lead(s) V4 Electronically Signed On 07-09-2024 15:32:58 PST by Cesar Monique Please click the below link to view image of tracing.
--- NOTE | 2024-07-06 03:17 | ECG ---
[facility] Test Date: 2024-07-05 Test Time: 08:04:32 Pat Name: JAIME LEÓN Department: ER Room: [facility]1T A Gender: F Production Roustabout: EDGARD : 1950 Requested By: YURI GONZALES Order Number: [id number] Reading MD: Cesar Monique Measurements Intervals [place] Rate: 55 P: 64 MI: 160 QRS: 82 QRSD: 79 T: 70 QT: 407 QTc: 390 Interpretive Statements Sinus rhythm Borderline right axis deviation Consider left ventricular hypertrophy Anterior Q waves, possibly due to LVH Electronically Signed On 07-09-2024 15:33:12 PST by Cesar Monique Please click the below link to view image of tracing.
[2024-07-06 06:54] LABS: Basophils # (auto) 0.1 10 ^3/uL (0-0.2); Basophils % (auto) 1.2 % (0.0-2.0); Eosinophils # (auto) 0.1 10 ^3/uL (0-0.8); Eosinophils % (auto) 1.8 % (0.0-7.0); Hematocrit 40.8 % (36.0-46.0); Hemoglobin 13.5 g/dL (12.2-16.2); Lymphocytes # (auto) 2.1 10 ^3/uL (0.4-5.4); Lymphocytes % (auto) 40.7 % (10.0-50.0); Mean Corpuscular Hemoglobin 29.6 pg (28.0-32.0); Mean Corpuscular Volume 89.8 fL (80.0-100.0); Monocytes # (auto) 0.4 10 ^3/uL (0-1.3); Monocytes % (auto) 7.6 % (0.0-12.0); Neutrophils # (auto) 2.5 10 ^3/uL (1.6-8.6); Neutrophils % (auto) 48.7 % (37.0-80.0); Platelet Count (auto) 176 10^3/uL (140-450); Red Blood Cells 4.54 10^6/uL (4.0-5.20); Red Cell Distribution Width 13.2 % (11.8-14.3); White Blood Cell 5.1 10^3/uL (4.4-10.8)
[2024-07-06 07:18] LABS: Alanine Aminotransferase 16 U/L (7-40); Albumin 4.3 g/dL (3.2-4.8); Alkaline Phosphatase 49 U/L (46-116); Anion Gap 5 (5-15); Aspartate Aminotransferase 19 U/L (13-40); Blood Urea Nitrogen 15 mg/dL (9-23); Calcium 9.6 mg/dL (8.7-10.4); Carbon Dioxide 31 mmol/L (20-31); Chloride 104 mmol/L (98-107); Glucose 83 mg/dL (74-106); Potassium 4.2 mmol/L (3.5-5.1); Sodium 140 mmol/L (136-145)
[2024-07-06 07:19] LABS: Total Protein 6.8 g/dL (5.7-8.2)
[2024-07-06 07:20] LABS: Bilirubin, Total 1.5 mg/dL (0.2-1.0)
--- NOTE | 2024-07-06 08:24 | ECG ---
[facility] Test Date: 2024-07-05 Test Time: 10:37:42 Pat Name: JAIME LEÓN Department: ER Room: [facility]1T A Gender: F Assistant Professor: EDGARD : 1950 Requested By: YURI GONZALES Order Number: [id number] Reading MD: Cesar Monique Measurements Intervals [place] Rate: 51 P: 79 HI: 160 QRS: 79 QRSD: 79 T: 52 QT: 446 QTc: 411 Interpretive Statements Sinus rhythm Consider left ventricular hypertrophy Anterior Q waves, possibly due to LVH Electronically Signed On 07-09-2024 15:35:18 PST by Cesar Monique Please click the below link to view image of tracing.
[2024-07-06] MEDS: ASPirin 81 mg TAB PO SCH (10:00)
[2024-07-06] MEDS: PANTOPRAZOLE 40 MG/10 ML VIAL INJ IV SCH (10:10)
--- NOTE | 2024-07-06 10:13 | DVHINCON2 ---
Date Seen: Jul 06, 2024 Referring Physician MARIANA Lynn Reason for Consultation Chest pain History of Present Illness This is a pleasant 73-year-old female who presented to the emergency room with a chief complaint of chest pain. Localizes her chest pain to the epigastric area radiating to the left inframammary/back areas, sharp in nature, intermittent, non provoked, and associated with left arm numbness and left-sided neck pain. She underwent multiple 12 lead electrocardiogram revealing a normal sinus rhythm. Serial troponin levels are negative. Per patient, she was told at a previous facility to undergo a cardiac catheterization in the setting of persistent chest pain. Reports she last saw her primary pin inserter regulator mid year 2023 and has not had any stress test/cardiac catheterizations since 2015. Of note, the patient complains of symptomatic bradycardia including generalized weakness. She was recently prescribed carvedilol and Cardizem. Significant medical history includes coronary artery disease status post PTCA including one ESTIVEN on ASA at [facility] in [place] on 2015, hypertension, dyslipidemia, hypothyroidism, prediabetes, osteoporosis, GERD, and anxiety. Past Medical History Past medical history reviewed. No other significant than mentioned above. Past Surgical History PTCA including one ESTIVEN, 2015 Cataract surgery, 2023 Family History: Diabetes during G8 MOTHER Family History Family history reviewed. Social History Denies the use of illicit drugs, alcohol, or tobacco use. Allergies: Coded Allergies: NO KNOWN ALLERGIES (Unverified , 11/28/23) Home Meds Active Scripts Sucralfate (CARAFATE) 1 Gm Tab, 1 GM PO BID for 30 Days, #60 TAB 1 Refill Prov:IDALIA ZAMBRANO MD 11/29/23 Reported Medications Diltiazem HCl Coated Beads (Diltiazem HCl ER) 120 Mg Cap, 1 CAP PO DAILY 11/28/23 Carvedilol (Carvedilol) 3.125 Mg Tab, 1 TAB PO BID 11/28/23 Pantoprazole Sodium Sesquihydr (Pantoprazole Sodium Dr) 40 Mg Tab, 1 TAB PO DA ALEXANDER 11/28/23 Rosuvastatin Calcium (Rosuvastatin Calcium) 20 Mg Tab, 1 TAB PO HS 11/28/23 Irbesartan (IRBESARTAN) 300 Mg Tab, 1 TAB PO DAILY 11/28/23 Amlodipine Besylate (Amlodipine Besylate) 5 Mg Tab, 1 TAB PO DAILY 11/28/23 Isosorbide Mononitrate (Isosorbide Mononitrate Er) 30 Mg Tab, 1 TAB PO DAILY 11/28/23 Home Meds Home medications reviewed. Current Medications Current Medications Medications (Trade) Dose Ordered Sig/Robel Route PRN Reason Start Time Stop Time Status Last Admin Aspirin 81 mg DAILY PO 07/06/24 10:00 Atorvastatin Calcium (Lipitor) 40 mg HS PO 07/05/24 22:00 07/05/24 22:57 Morphine Sulfate 2 mg Q30MP PRN IV FOR CHEST PAIN 07/05/24 13:15 UNV Acetaminophen (Tylenol Tablet) 650 mg Q6HP PRN PO MILD PAIN (1-3 PAIN SCALE) 07/05/24 13:15 Nitroglycerin (Ntrostat Sublingual) 0.4 mg Q5MINP PRN SL FOR CHEST PAIN 07/05/24 13:15 UNV Ondansetron HCl (Zofran) 4 mg Q4HP PRN IV NAUSEA / VOMITING 07/05/24 13:15 Nitroglycerin (Ntrostat Sublingual) 0.4 mg Q5MINP PRN SL FOR CHEST PAIN 07/05/24 13:15 Morphine Sulfate 2 mg Q30M PRN IV FOR CHEST PAIN 07/05/24 13:15 Pantoprazole Sodium (Protonix) 40 mg DAILY IV 07/06/24 10:00 07/06/24 10:10 Review of Systems Constitutional: No symptom reported Ears, Nose, & Throat: No symptom reported Eyes: No symptom reported Neurological: No symptoms reported Pulmonary/Respiratory: No symptom reported Cardiovascular: Chest pain Gastrointestinal: No symptom reported Genitourinary: No symptom reported Musculoskeletal: No symptom reported Skin: No symptom reported Psychiatric: No symptom reported Endocrine: No symptom reported Hemotologic/Lymphatic: No symptom reported Vital Signs Vital Signs Date Time Temp Pulse Resp B/P (MAP) Pulse Ox O2 Delivery O2 Flow Rate FiO2 07/06/24 09:00 97.9 53 18 125/50 (75) 98 97.9 07/05/24 21:44 Room Air* 0 21 Physical Exam General Appearance: Cooperative. Well developed. Thin. In no acute distress Head Exam: Normal inspection Neck Exam: Normal inspection. Non-tender. Normal alignment Pulmonary/Respiratory: Chest non-tender. Clear bilateral breath sounds Cardiovascular/Chest: Regular rate and rhythm. S1, S2. NSR. No murmurs. No JVD. Peripheral Pulses: 2+ Radial (R). 2+ Radial (L). 2+ Pedal (R). 2+ Pedal (L) Abdominal Exam: Normal bowel sounds. Soft. Nontender. No hepatospenomegaly. No masses Ankle Exam: Negative ankle edema Lower extremities: Negative lower extremity edema Neuro/Mental Status: A&O x4. Coherent Thoughts/Psych: Normal thought pattern. Appropriate mood and affect. Good judgement and insight Appearance: In no acute distress Skin Exam: Normal inspection. Normal color. Warm. Dry Labs/Diagnostic Data Labs Test 07/06/24 06:29 07/05/24 11:50 07/05/24 10:19 07/05/24 08:27 Range/Units White Blood Count 5.1 4.4-10.8 10^3/uL Red Blood Count 4.54 4.0-5.20 10^6/uL Hemoglobin 13.5 12.2-16.2 g/dL Hematocrit 40.8 36.0-46.0 % Mean Corpuscular Volume 89.8 80.0-100.0 fL Mean Corpuscular Hemoglobin 29.6 28.0-32.0 pg Mean Corpuscular Hemoglobin Concent 33.0 32.0-36.0 g/dL Red Cell Distribution Width 13.2 11.8-14.3 % Platelet Count 176 140-450 10^3/uL Mean Platelet Volume 7.9 6.9-10.8 fL Neutrophils (%) (Auto) 48.7 37.0-80.0 % Lymphocytes (%) (Auto) 40.7 10.0-50.0 % Monocytes (%) (Auto) 7.6 0.0-12.0 % Eosinophils (%) (Auto) 1.8 0.0-7.0 % Basophils (%) (Auto) 1.2 0.0-2.0 % Neutrophils # (Auto) 2.5 1.6-8.6 10 ^3/uL Lymphocytes # (Auto) 2.1 0.4-5.4 10 ^3/uL Monocytes # (Auto) 0.4 0-1.3 10 ^3/uL Eosinophils # (Auto) 0.1 0-0.8 10 ^3/uL Basophils # (Auto) 0.1 0-0.2 10 ^3/uL Nucleated Red Blood Cells 0.0 % Sodium Level 140 136-145 mmol/L Potassium Level 4.2 3.5-5.1 mmol/L Chloride Level 104 98-107 mmol/L Carbon Dioxide Level 31 20-31 mmol/L Anion Gap 5 5-15 Blood Urea Nitrogen 15 9-23 mg/dL Creatinine 0.75 0.550-1.02 mg/dL Glomerular Filtration Rate Calc 85 >90 mL/min BUN/Creatinine Ratio 20.0 10.0-20.0 Serum Glucose 83 74-106 mg/dL Calcium Level 9.6 8.7-10.4 mg/dL Total Bilirubin 1.5 H 0.2-1.0 mg/dL Aspartate Amino Transferase (AST) 19 13-40 U/L Alanine Aminotransferase (ALT) 16 7-40 U/L Alkaline Phosphatase 49 46-116 U/L Total Protein 6.8 5.7-8.2 g/dL Albumin 4.3 3.2-4.8 g/dL POC Glucose 144 H 70-106 mg/dl Troponin I High Sensitivity 3 L </=34 ng/L Urine Color Colorless Yellow Urine Clarity Clear Clear Urine pH 7.0 5.0-9.0 Urine Specific [place] 1.009 1.001-1.035 Urine Protein Negative Negative Urine Ketones Negative Negative Urine Blood Negative Negative /uL Urine Nitrite Negative Negative Urine Bilirubin Negative Negative Urine Urobilinogen Normal Negative mg/dL Urine Leukocyte Esterase Negative Negative /uL Urine RBC 1 0 - 4 /hpf Urine WBC <1 0 - 5 /hpf Urine Squamous Epithelial Cells Few <5 /hpf Urine Bacteria None seen None Seen /hpf Urine Glucose Normal Normal mg/dL Test 07/05/24 07:15 07/05/24 06:27 Range/Units Hemoglobin A1c 6.1 H <5.7 % A1C Triglycerides Level 99 < 150 mg/dL Cholesterol Level 168 < 200 mg/dL LDL Cholesterol 70 < 100 mg/dL HDL Cholesterol 85 H 40-59 mg/dL Thyroid Stimulating Hormone (TSH) 1.53 0.55-4.78 uIU/mL Urine Opiates Screen Neg NEGATIVE Urine Fentanyl Screen Neg NEGATIVE Urine Barbiturates Screen Neg NEGATIVE Urine Phencyclidine Screen Neg NEGATIVE Urine Amphetamines Screen Neg NEGATIVE Urine Benzodiazepines Screen Neg NEGATIVE Urine Cocaine Screen Neg NEGATIVE Urine Cannabinoids Screen Neg NEGATIVE Assessment Chest pain rule out progressive coronary artery disease Coronary artery disease status post PTCA x1 ESTIVEN (2016) Symptomatic bradycardia, on BB and CCB Rule out structural heart disease Hypertension Dyslipidemia Hypothyroidism Prediabetes Anxiety GERD Plan/Recommendation (Dr. Toth) We will continue further cardiac evaluation with a transthoracic echocardiogram to rule out structural heart disease. Given history of CAD with acute chest pain the patient will be tentatively scheduled for stress test versus cardiac catheterization. In the meantime, avoid AV alex blocking agents given symptomatic bradycardia. Continue single antiplatelet therapy and lipid lowering agent. Monitor ECG changes and notify. Chest pain protocol. Thank you for allowing us to participate in this patient's care. Please call if you have any questions or concerns. This medical document was created using an electronic medical record system with voice recognition software and computerized dictation system. Although this document has been carefully reviewed, there might still be some phonetic and typographical errors. Occasional wrong-word or ``sound-alike substitutions may have occurred due to the inherent limitations of voice recognition software. These areas are purely typographical due to imperfections of the software programs and do not reflect any compromise in the patient's medical care. Please read the chart carefully and recognize, using context, where these substitutions have occurred. Plan discussed with: Patient, Other NYHA Physical activity limitations: NA Date of Service: Jul 06, 2024 Billing Provider: PATRICIA TOTH MD Cardiology Common Codes: [id number] INP/OBS CARE (High) ZBIGNIEW ESTRADA SEAM CLOSER Jul 06, 2024 10:13
--- NOTE | 2024-07-06 11:41 | DVHSR ---
APPROVED REPORT EXAM: Two-dimensional and M-mode echocardiogram with Doppler and color Doppler. Blood Pressure: 136/56 mmHg INDICATION Chest Pain RISK FACTORS Height: 4'11, Weight: 85 DIMENSIONS LVDd4.3 (3.8-5.7cm)LA (2D)3.1 (1.9-4.0cm)Aortic Root2.9 (2.0-3.7cm) LVDs2.4 (2.5-4.0cm)LA (MM) (1.9-4.0cm)Aortic Cusp Exc1.6 (1.5-2.0cm) EF (%) 60.0 (55-70%)Rt. Atrium3.2 (1.9-4.0cm)Asc. Aorta3.1 cm IVSd0.8 (0.7-1.1cm)RV (D)3.9 (1.8-2.4cm) PWd0.9 (0.7-1.1cm) Mitral Valve MitralMitral Stenosis E wave1.01m/sMV Mean GR.mmHg A wave1.20m/sMV Peak GR.90mmHg E/A ratio0.82D MVAcm2 DECEL [id number] 1/2 Timems Aortic Valve Aortic ValveAortic Stenosis V11.07m/Susan Mean GR.5mmHg V21.66m/Susan Peak GR.11mmHg LVOT Diameter1.8 (1.8-2.4cm)Doppler AVA1.64cm2 AI P 1/2 [id number] Pulmonic Valve V20.92m/s Tricuspid Valve TR Velocity2.94m/s [id number] LEFT VENTRICLE The left ventricle is of normal size. Wall thickness is normal. Ejection fraction is normal and is estimated at 60-65%. There is no regional wall motion abnormalities. There is grade II diastolic dy sfunction. RIGHT VENTRICLE The right ventricle is of normal size. Systolic function is normal. ATRIA The left atrium is moderately dilated in size. The right atrium is moderately dilated in size. Likely normal. MITRAL VALVE There is mild mitral annular calcification. No significant mitral regurgitation. PULMONIC VALVE Likely normal. TRICUSPID VALVE There is mild tricuspid regurgitation. PA systolic pressure is estimated at 40-45 mm Hg. AORTIC VALVE The aortic valve leaflets are sclerotic. There is no significant stenosis. There is mild insufficie ncy. GREAT VESSELS The aortic root is of normal size. Proximal ascending aorta is of normal size. PERICARDIAL EFFUSION There is no significant pericardial effusion. IVC is of normal size and collapses normally with insp iration. Conclusion Normal left ventricular size and systolic function. Ejection fraction is estimated at 60-65%. Grade II diastolic dysfunction. Normal right ventricular size and systolic function. Moderate biatrial enlargement. No hemodynamically significant valvular disease. PA systolic pressure is estimated at 40-45 mm Hg.
[2024-07-06] MEDS: REGADENOSON 0.4 MG/5 ML SYRG IV ONE (11:53)
--- NOTE | 2024-07-06 12:18 | DVHPN2 ---
Reviewed: Care Plan, H&P, Labs, Medications, Previous Orders, Radiology Changes from previous H/P or p: No Changes Eyes: No Pain, No Vision change, No Conjunctivae inflammation, No Eyelid inflammation, No Other, No Redness ENT: No Ear pain, No Ear discharge, No Nose pain, No Nose discharge, No Nose congestion, No Mouth pain, No Mouth swelling, No Throat pain, No Throat swelling, No Other Cardiovascular: Chest Pain; No Palpitations, No Orthopnea, No Paroxysmal Noc. Dyspnea, No Edema, No Lt Headedness, No Other Respiratory: No Cough, No Dry, No Shortness of breath, No SOB with excertion, No Wheezing, No Hemoptysis, No Pleuritic Pain, No Sputum, No Other Gastrointestinal: No Nausea, No Vomiting, No Abdominal Pain, No Diarrhea, No Constipation, No Melena, No Hematochezia, No Other Genitourinary: No Dysuria, No Frequency, No Incontinence, No Hematuria, No Retention, No Other Musculoskeletal: No other; neck pain; No shoulder pain; arm pain; No back pain, No hand pain, No leg pain, No foot pain Skin: No Rash, No Lesions, No Jaundice, No Bruising, No Other Objective Vitals Vital Signs Date Time Temp Pulse Resp B/P (MAP) Pulse Ox O2 Delivery O2 Flow Rate FiO2 07/06/24 09:00 97.9 53 18 125/50 (75) 98 97.9 07/05/24 21:44 Room Air* 0 21 Intake/Output Intake and Output 07/06/24 07:00 Intake Total 400 ml Balance 400 ml Intake Oral 400 ml # Voids 1 Medications Current Medications Medications Dose Ordered Sig/Robel Route Start Time Stop Time Status Last Admin Dose Admin Aspirin 81 mg DAILY PO 07/06/24 10:00 Atorvastatin Calcium 40 mg HS PO 07/05/24 22:00 07/05/24 22:57 40 MG Morphine Sulfate 2 mg Q30MP PRN IV 07/05/24 13:15 UNV Acetaminophen 650 mg Q6HP PRN PO 07/05/24 13:15 Nitroglycerin 0.4 mg Q5MINP PRN SL 07/05/24 13:15 UNV Ondansetron HCl 4 mg Q4HP PRN IV 07/05/24 13:15 Nitroglycerin 0.4 mg Q5MINP PRN SL 07/05/24 13:15 Morphine Sulfate 2 mg Q30M PRN IV 07/05/24 13:15 Pantoprazole Sodium 40 mg DAILY IV 07/06/24 10:00 07/06/24 10:10 40 MG Laboratory Results Laboratory Tests 07/06/24 06:29 Chemistry Test 07/06/24 06:29 Albumin 4.3 g/dL (3.2-4.8) Calcium Level 9.6 mg/dL (8.7-10.4) Magnesium Level 2.2 mg/dL (1.6-2.6) Total Protein 6.8 g/dL (5.7-8.2) LFT Test 07/06/24 06:29 Alanine Aminotransferase (ALT) 16 U/L (7-40) Alkaline Phosphatase 49 U/L (46-116) Aspartate Amino Transferase (AST) 19 U/L (13-40) Total Bilirubin 1.5 mg/dL (0.2-1.0) H Urinalysis Test 07/05/24 08:27 Urine Color Colorless (Yellow) Urine Clarity Clear (Clear) Urine pH 7.0 (5.0-9.0) Urine Specific [place] 1.009 (1.001-1.035) Urine Protein Negative (Negative) Urine Ketones Negative (Negative) Urine Blood Negative /uL (Negative) Urine Nitrite Negative (Negative) Urine Bilirubin Negative (Negative) Urine Urobilinogen Normal mg/dL (Negative) Urine Leukocyte Esterase Negative /uL (Negative) Urine RBC 1 /hpf (0 - 4) Urine WBC <1 /hpf (0 - 5) Urine Squamous Epithelial Cells Few /hpf (<5) Urine Bacteria None seen /hpf (None Seen) Urine Glucose Normal mg/dL (Normal) Labs and/or images reviewed: Labs reviewed by me, Image(s) reviewed by me Assessment/Plan Assessment/Plan Acute Chest pain rule out coronary artery disease : Troponin negative x3, cardiology consult by Dr Weller appreciated, treatment per ACS protocol Coronary artery disease status post PTCA x1 ESTIVEN (2015) echocardiogram Symptomatic bradycardia, on BB and CCB Rule out structural heart disease Hypertension Dyslipidemia: Lipitor Hypothyroidism : Synthroid Prediabetes Anxiety GERD pantoprazole Cardiology Planning for Cardiolite stress test Plan discussed with: Patient Date of Service: Jul 06, 2024 Billing Provider: AVERY HILL MD Common Visit Codes: [id number] INP/OBS CARE(HIGH) AVERY HILL MD Jul 06, 2024 12:18
--- NOTE | 2024-07-06 13:20 | DVHSR ---
APPROVED REPORT Exam: Nuclear Stress Test BMI: 0 Stress Test Details HR Max Heart Rate (APMHR): 148.921379 bpm Target HR (85% APMHR): 125.879529 bpm BP ECG Stress ECG Conclusion Review of the myocardial perfusion images during stress demonstrated homogeneous radiotracer uptake t hroughout the left ventricular myocardium. Left ventricular volumes are normal. Ejection fraction i s normal and is estimated at 74%. There is no significant transient ischemic dilatation. No gated i mages are available to assess for wall motion. Impressions: Low risk myocardial perfusion scan with no evidence of ischemia or prior infarction. Normal left ventricular systolic function. NM EXAM: Myocardial Perfusion REST/STRESS Imaging Protocol: Rest Tc-99m/Stress Tc-99m 1 day Resting Data Rest SPECT myocardial perfusion imaging was performed in supine position 60 minutes following the int ravenous injection of 13.3 mCi of Tc-99m Sestamibi. Time of rest injection: 1030 Time of rest imagin Administration Route: IV Administration Site: Right AC Pharmacologic Stress Pharmacologic stress test was performed by injecting Regadenoson 0.4 mg IV push followed by the intra venous injection of 30.3 mCi of Tc-99m Sestamibi. Time of stress injection: 1152 Time of stress imagin Administration Route: IV Administration Site: Right AC Gated Stress SPECT was performed 60 minutes after stress injection. The images were gated to evaluate regional wall motion and calculate left ventricular ejection fracti on. Stress only was performed in the Supine position. Nuclear Conclusion ECG Findings: equivocal Clinical Findings: negative for ischemia Nuclear Findings: negative for ischemia Exercise Capacity: not assessed Left Ventricular Function: normal Risk Study: low Review of the myocardial perfusion images during stress demonstrated homogeneous radiotracer uptake t hroughout the left ventricular myocardium. Left ventricular volumes are normal. Ejection fraction i s normal and is estimated at 74%. There is no significant transient ischemic dilatation. No gated i mages are available to assess for wall motion. Impressions: Low risk myocardial perfusion scan with no evidence of ischemia or prior infarction. Normal left ventricular systolic function.
[2024-07-06] MEDS: ACETAMINOPHEN 325 MG TAB PO PRN (22:00)
[2024-07-07] VITALS (8 sets, daily range): BP systolic 101–158; BP diastolic 50–79; PULSE 57–78; RESP 17–19; TEMP 97.3–98.8; O2SAT 96–100
--- NOTE | 2024-07-07 09:10 | DVHPN2 ---
Consult Progress Note Date Seen: Jul 07, 2024 Subjective Review of Systems: CVS:Normal, RESPIRATORY:Normal, GI:Abnormal, NEURO:Normal Other Systems: C/o epigastric pain radiating to chest wall area Objective vital signs Vital Sign Date Time Temp Pulse Resp B/P (MAP) Pulse Ox O2 Delivery O2 Flow Rate FiO2 07/07/24 05:00 97.8 57 18 152/65 (94) 99 97.8 07/06/24 20:00 Room Air* 0 21 Total Intake and Output 07/06/24 07/06/24 07/07/24 15:00 23:00 07:00 Intake Total 240 ml 1040 ml 240 ml Balance 240 ml 1040 ml 240 ml medications Current Medications Medications Dose Ordered Sig/Robel Route Start Time Stop Time Status Last Admin Dose Admin Aspirin 81 mg DAILY PO 07/06/24 10:00 Atorvastatin Calcium 40 mg HS PO 07/05/24 22:00 07/06/24 21:05 40 MG Morphine Sulfate 2 mg Q30MP PRN IV 07/05/24 13:15 UNV Acetaminophen 650 mg Q6HP PRN PO 07/05/24 13:15 07/06/24 22:00 650 MG Nitroglycerin 0.4 mg Q5MINP PRN SL 07/05/24 13:15 UNV Ondansetron HCl 4 mg Q4HP PRN IV 07/05/24 13:15 Nitroglycerin 0.4 mg Q5MINP PRN SL 07/05/24 13:15 Morphine Sulfate 2 mg Q30M PRN IV 07/05/24 13:15 Pantoprazole Sodium 40 mg DAILY IV 07/06/24 10:00 07/06/24 10:10 40 MG Examination: LUNGS:Normal, CVS:Normal, NEURO:Normal laboratory and microbiology Laboratory Tests 07/06/24 06:29 Test 07/06/24 06:29 Range/Units Serum Glucose 83 74-106 mg/dL Problem List/Assessment/Plan Problem List/Assessment/Plan Chest pain rule out progressive coronary artery disease Coronary artery disease status post PTCA x1 ESTIVEN (2015) Symptomatic bradycardia, on BB and CCB Rule out structural heart disease Hypertension Dyslipidemia Hypothyroidism Prediabetes Anxiety GERD Plan/Recommendation (Dr. Ramirez) The patient with complaints of epigastric pain radiating to the chest wall area underwent a transthoracic echocardiogram revealing an EF of 60-65% with grade 2 diastolic dysfunction. She also underwent a Cardiolite stress test deemed to be at low risk myocardial perfusion scan with no evidence of ischemia or for prior infarction. We recommend continuation of PPI as the symptoms are likely secondary to GERD. Continue single antiplatelet therapy and lipid lowering agent. Avoid AV alex blocking agents including BBs and CCBs as the patient presented with somewhat symptomatic bradycardia including lethargy. Continue blood pressure control with isosorbide mononitrate and uptitrate as necessary. Patient to follow-up with primary batcher operator within 1-2 weeks for further evaluation. There is no further cardiac workup indicated at this time. Kindly call if in need to re-consult. Thank you for allowing us to participate in this patient's care. This medical document was created using an electronic medical record system with voice recognition software and computerized dictation system. Although this document has been carefully reviewed, there might still be some phonetic and typographical errors. Occasional wrong-word or ``sound-alike substitutions may have occurred due to the inherent limitations of voice recognition software. These areas are purely typographical due to imperfections of the software programs and do not reflect any compromise in the patient's medical care. Please read the chart carefully and recognize, using context, where these substitutions have occurred. Plan discussed with: Patient, Other Date of Service: Jul 07, 2024 Billing Provider: ZBIGNIEW ESTRADA Cardiology Common Codes: [id number] INP/OBS CARE(Mod) ZBIGNIEW ESTRADA Jul 07, 2024 09:10
[2024-07-07] MEDS: ISOSORBIDE MONONITRATE ER 60 MG TAB PO SCH (10:03)
--- NOTE | 2024-07-07 11:40 | DVHPN2 ---
Reviewed: Care Plan, H&P, Labs, Medications, Previous Orders, Radiology Changes from previous H/P or p: No Changes Eyes: No Pain, No Vision change, No Conjunctivae inflammation, No Eyelid inflammation, No Other, No Redness ENT: No Ear pain, No Ear discharge, No Nose pain, No Nose discharge, No Nose congestion, No Mouth pain, No Mouth swelling, No Throat pain, No Throat swelling, No Other Cardiovascular: Chest Pain; No Palpitations, No Orthopnea, No Paroxysmal Noc. Dyspnea, No Edema, No Lt Headedness, No Other Respiratory: No Cough, No Dry, No Shortness of breath, No SOB with excertion, No Wheezing, No Hemoptysis, No Pleuritic Pain, No Sputum, No Other Gastrointestinal: No Nausea, No Vomiting, No Abdominal Pain, No Diarrhea, No Constipation, No Melena, No Hematochezia, No Other Genitourinary: No Dysuria, No Frequency, No Incontinence, No Hematuria, No Retention, No Other Musculoskeletal: No other; neck pain; No shoulder pain; arm pain; No back pain, No hand pain, No leg pain, No foot pain Skin: No Rash, No Lesions, No Jaundice, No Bruising, No Other Objective Vitals Vital Signs Date Time Temp Pulse Resp B/P (MAP) Pulse Ox O2 Delivery O2 Flow Rate FiO2 07/07/24 10:03 152/65 07/07/24 09:00 97.8 63 17 99 97.8 07/07/24 08:00 Room Air* 0 21 Intake/Output Intake and Output 07/07/24 07:00 Intake Total 1520 ml Balance 1520 ml Intake Oral 1520 ml # Voids 6 Medications Current Medications Medications Dose Ordered Sig/Robel Route Start Time Stop Time Status Last Admin Dose Admin Aspirin 81 mg DAILY PO 07/06/24 10:00 07/07/24 09:32 81 MG Atorvastatin Calcium 40 mg HS PO 07/05/24 22:00 07/06/24 21:05 40 MG Morphine Sulfate 2 mg Q30MP PRN IV 07/05/24 13:15 UNV Acetaminophen 650 mg Q6HP PRN PO 07/05/24 13:15 07/06/24 22:00 650 MG Nitroglycerin 0.4 mg Q5MINP PRN SL 07/05/24 13:15 UNV Ondansetron HCl 4 mg Q4HP PRN IV 07/05/24 13:15 Nitroglycerin 0.4 mg Q5MINP PRN SL 07/05/24 13:15 Morphine Sulfate 2 mg Q30M PRN IV 07/05/24 13:15 Pantoprazole Sodium 40 mg DAILY IV 07/06/24 10:00 07/07/24 09:32 40 MG Isosorbide Mononitrate 60 mg DAILY PO 07/07/24 10:00 07/07/24 10:03 60 MG Laboratory Results Laboratory Tests 07/06/24 06:29 Urinalysis Test 07/05/24 08:27 Urine Color Colorless (Yellow) Urine Clarity Clear (Clear) Urine pH 7.0 (5.0-9.0) Urine Specific [place] 1.009 (1.001-1.035) Urine Protein Negative (Negative) Urine Ketones Negative (Negative) Urine Blood Negative /uL (Negative) Urine Nitrite Negative (Negative) Urine Bilirubin Negative (Negative) Urine Urobilinogen Normal mg/dL (Negative) Urine Leukocyte Esterase Negative /uL (Negative) Urine RBC 1 /hpf (0 - 4) Urine WBC <1 /hpf (0 - 5) Urine Squamous Epithelial Cells Few /hpf (<5) Urine Bacteria None seen /hpf (None Seen) Urine Glucose Normal mg/dL (Normal) Labs and/or images reviewed: Labs reviewed by me, Image(s) reviewed by me Assessment/Plan Assessment/Plan Acute Chest pain rule out coronary artery disease : Troponin negative x3, cardiology consult by Dr Weller appreciated, treatment per ACS protocol Coronary artery disease status post PTCA x1 ESTIVEN (2015) echocardiogram 60 % ejection fraction, Cardiolite stress test neg Symptomatic bradycardia, on BB and CCB Rule out structural heart disease Hypertension Dyslipidemia: Lipitor Hypothyroidism : Synthroid Prediabetes Anxiety GERD pantoprazole Plan discussed with: Patient Date of Service: Jul 07, 2024 Billing Provider: AVERY HILL MD Common Visit Codes: [id number] INP/OBS CARE(HIGH) AVERY HILL MD Jul 07, 2024 11:40
[2024-07-08] VITALS (7 sets, daily range): BP systolic 104–150; BP diastolic 53–68; PULSE 47–71; RESP 17–18; TEMP 97.6–98.4; O2SAT 96
[2024-07-08] MEDS: MELATONIN 5 MG TAB PO SCH (00:18)
--- NOTE | 2024-07-08 11:23 | DVHPN2 ---
Reviewed: Care Plan, H&P, Labs, Medications, Previous Orders, Radiology Changes from previous H/P or p: No Changes Eyes: No Pain, No Vision change, No Conjunctivae inflammation, No Eyelid inflammation, No Other, No Redness ENT: No Ear pain, No Ear discharge, No Nose pain, No Nose discharge, No Nose congestion, No Mouth pain, No Mouth swelling, No Throat pain, No Throat swelling, No Other Cardiovascular: Chest Pain; No Palpitations, No Orthopnea, No Paroxysmal Noc. Dyspnea, No Edema, No Lt Headedness, No Other Respiratory: No Cough, No Dry, No Shortness of breath, No SOB with excertion, No Wheezing, No Hemoptysis, No Pleuritic Pain, No Sputum, No Other Gastrointestinal: No Nausea, No Vomiting, No Abdominal Pain, No Diarrhea, No Constipation, No Melena, No Hematochezia, No Other Genitourinary: No Dysuria, No Frequency, No Incontinence, No Hematuria, No Retention, No Other Musculoskeletal: No other; neck pain; No shoulder pain; arm pain; No back pain, No hand pain, No leg pain, No foot pain Skin: No Rash, No Lesions, No Jaundice, No Bruising, No Other Objective Vitals Vital Signs Date Time Temp Pulse Resp B/P (MAP) Pulse Ox O2 Delivery O2 Flow Rate FiO2 07/08/24 10:08 121/55 07/08/24 09:00 97.6 47 18 96 97.6 07/08/24 08:00 Room Air* 0 21 Intake/Output Intake and Output 07/08/24 07:00 Intake Total 1735 ml Balance 1735 ml Intake Oral 1735 ml # Voids 6 Medications Current Medications Medications Dose Ordered Sig/Robel Route Start Time Stop Time Status Last Admin Dose Admin Aspirin 81 mg DAILY PO 07/06/24 10:00 07/08/24 10:08 81 MG Atorvastatin Calcium 40 mg HS PO 07/05/24 22:00 07/07/24 21:44 40 MG Morphine Sulfate 2 mg Q30MP PRN IV 07/05/24 13:15 UNV Acetaminophen 650 mg Q6HP PRN PO 07/05/24 13:15 07/06/24 22:00 650 MG Nitroglycerin 0.4 mg Q5MINP PRN SL 07/05/24 13:15 UNV Ondansetron HCl 4 mg Q4HP PRN IV 07/05/24 13:15 Nitroglycerin 0.4 mg Q5MINP PRN SL 07/05/24 13:15 Morphine Sulfate 2 mg Q30M PRN IV 07/05/24 13:15 Pantoprazole Sodium 40 mg DAILY IV 07/06/24 10:00 07/08/24 10:08 40 MG Isosorbide Mononitrate 60 mg DAILY PO 07/07/24 10:00 07/08/24 10:08 60 MG Melatonin 5 mg HS PO 07/08/24 00:15 07/08/24 00:18 5 MG Laboratory Results Laboratory Tests 07/06/24 06:29 Urinalysis Test 07/05/24 08:27 Urine Color Colorless (Yellow) Urine Clarity Clear (Clear) Urine pH 7.0 (5.0-9.0) Urine Specific [place] 1.009 (1.001-1.035) Urine Protein Negative (Negative) Urine Ketones Negative (Negative) Urine Blood Negative /uL (Negative) Urine Nitrite Negative (Negative) Urine Bilirubin Negative (Negative) Urine Urobilinogen Normal mg/dL (Negative) Urine Leukocyte Esterase Negative /uL (Negative) Urine RBC 1 /hpf (0 - 4) Urine WBC <1 /hpf (0 - 5) Urine Squamous Epithelial Cells Few /hpf (<5) Urine Bacteria None seen /hpf (None Seen) Urine Glucose Normal mg/dL (Normal) Labs and/or images reviewed: Labs reviewed by me, Image(s) reviewed by me Assessment/Plan Assessment/Plan Acute Chest pain rule out coronary artery disease : Troponin negative x3, cardiology consult by Dr Weller appreciated, treatment per ACS protocol Coronary artery disease status post PTCA x1 ESTIVEN (2016) echocardiogram 60 % ejection fraction, Cardiolite stress test neg Symptomatic bradycardia, secondary to beta denita and calcium channel denita Rule out structural heart disease Hypertension Dyslipidemia: Lipitor Hypothyroidism : Synthroid Prediabetes Anxiety GERD pantoprazole Plan discussed with: Patient Date of Service: Jul 08, 2024 Billing Provider: AVERY HILL MD Common Visit Codes: [id number] INP/OBS CARE(HIGH) AVERY HILL MD Jul 08, 2024 11:23
--- NOTE | 2024-07-08 11:28 | DVHDS2 ---
Discharge Summary Date of Admission Jul 05, 2024 at 13:01 Date of Discharge: Jul 08, 2024 Admitting Diagnosis Shortness of breaths and generalized weakness Wounds: None Labs/Diagnostic Data: Laboratory Results Test 07/06/24 06:29 07/05/24 11:50 07/05/24 10:19 07/05/24 08:27 White Blood Count 5.1 10^3/uL (4.4-10.8) Red Blood Count 4.54 10^6/uL (4.0-5.20) Hemoglobin 13.5 g/dL (12.2-16.2) Hematocrit 40.8 % (36.0-46.0) Mean Corpuscular Volume 89.8 fL (80.0-100.0) Mean Corpuscular Hemoglobin 29.6 pg (28.0-32.0) Mean Corpuscular Hemoglobin Concent 33.0 g/dL (32.0-36.0) Red Cell Distribution Width 13.2 % (11.8-14.3) Platelet Count 176 10^3/uL (140-450) Mean Platelet Volume 7.9 fL (6.9-10.8) Neutrophils (%) (Auto) 48.7 % (37.0-80.0) Lymphocytes (%) (Auto) 40.7 % (10.0-50.0) Monocytes (%) (Auto) 7.6 % (0.0-12.0) Eosinophils (%) (Auto) 1.8 % (0.0-7.0) Basophils (%) (Auto) 1.2 % (0.0-2.0) Neutrophils # (Auto) 2.5 10 ^3/uL (1.6-8.6) Lymphocytes # (Auto) 2.1 10 ^3/uL (0.4-5.4) Monocytes # (Auto) 0.4 10 ^3/uL (0-1.3) Eosinophils # (Auto) 0.1 10 ^3/uL (0-0.8) Basophils # (Auto) 0.1 10 ^3/uL (0-0.2) Nucleated Red Blood Cells 0.0 % Sodium Level 140 mmol/L (136-145) Potassium Level 4.2 mmol/L (3.5-5.1) Chloride Level 104 mmol/L (98-107) Carbon Dioxide Level 31 mmol/L (20-31) Anion Gap 5 (5-15) Blood Urea Nitrogen 15 mg/dL (9-23) Creatinine 0.75 mg/dL (0.550-1.02) Glomerular Filtration Rate Calc 85 mL/min (>90) BUN/Creatinine Ratio 20.0 (10.0-20.0) Serum Glucose 83 mg/dL (74-106) Calcium Level 9.6 mg/dL (8.7-10.4) Magnesium Level 2.2 mg/dL (1.6-2.6) Total Bilirubin 1.5 mg/dL (0.2-1.0) Aspartate Amino Transferase (AST) 19 U/L (13-40) Alanine Aminotransferase (ALT) 16 U/L (7-40) Alkaline Phosphatase 49 U/L (46-116) Total Protein 6.8 g/dL (5.7-8.2) Albumin 4.3 g/dL (3.2-4.8) POC Glucose 144 mg/dl (70-106) Troponin I High Sensitivity 3 ng/L (</=34) Urine Color Colorless (Yellow) Urine Clarity Clear (Clear) Urine pH 7.0 (5.0-9.0) Urine Specific [place] 1.009 (1.001-1.035) Urine Protein Negative (Negative) Urine Ketones Negative (Negative) Urine Blood Negative /uL (Negative) Urine Nitrite Negative (Negative) Urine Bilirubin Negative (Negative) Urine Urobilinogen Normal mg/dL (Negative) Urine Leukocyte Esterase Negative /uL (Negative) Urine RBC 1 /hpf (0 - 4) Urine WBC <1 /hpf (0 - 5) Urine Squamous Epithelial Cells Few /hpf (<5) Urine Bacteria None seen /hpf (None Seen) Urine Glucose Normal mg/dL (Normal) Test 07/05/24 07:15 07/05/24 06:27 Hemoglobin A1c 6.1 % A1C (<5.7) Triglycerides Level 99 mg/dL (< 150) Cholesterol Level 168 mg/dL (< 200) LDL Cholesterol 70 mg/dL (< 100) HDL Cholesterol 85 mg/dL (40-59) Thyroid Stimulating Hormone (TSH) 1.53 uIU/mL (0.55-4.78) Urine Opiates Screen Neg (NEGATIVE) Urine Fentanyl Screen Neg (NEGATIVE) Urine Barbiturates Screen Neg (NEGATIVE) Urine Phencyclidine Screen Neg (NEGATIVE) Urine Amphetamines Screen Neg (NEGATIVE) Urine Benzodiazepines Screen Neg (NEGATIVE) Urine Cocaine Screen Neg (NEGATIVE) Urine Cannabinoids Screen Neg (NEGATIVE) Other Laboratory Tests 07/06/24 06:29 Brief Hx & Hospital Course: 83-year-old female with a history of hypertension hypercholesterolemia hypothyroidism prediabetes anxiety GERD came in complaining of chest pain shortness of breath and weakness troponin negative x3 cardiology consult appreciated echo 60 percent ejection fraction Cardiolite stress test negative patient was on Cardizem and Coreg which probably caused bradycardia being stopped and she feels better now being discharged home with a advised to follow up with the zoogler and not to take the beta denita and calcium channel denita Consults/Reason for consult Cardiology Operations or Procedures Cardiolite stress test Condition at Discharge: Fair Final Diagnosis/Problems List Acute Chest pain rule out coronary artery disease : Troponin negative x3, cardiology consult by Dr Weller appreciated, treatment per ACS protocol Coronary artery disease status post PTCA x1 ESTIVEN (2015) echocardiogram 60 % ejection fraction, Cardiolite stress test neg Symptomatic bradycardia, secondary to beta denita and calcium channel denita Rule out structural heart disease Hypertension Dyslipidemia: Lipitor Hypothyroidism : Synthroid Prediabetes Anxiety GERD pantoprazole Discharge Disposition: Home Discharge Instruct/Medications Diet: Cardiac 2g Na,low cholest Activity: Light activity Follow Up/Referral: Follow up with your primary Dr and cardiaologist Medications: Stop Diltiazem and carvedilol Continue all other medications and follow up with your zoogler 39 (Time Taken for discharge summary 39 minute) Discharge Statement: "Patient was advised to return to the ER or call 911 if any headaches, dizziness, shortness of breath, chest pain, abdominal pain, bleeding, fevers, or worsening of medical condition. Patient was counseled about treatment plan, medications, possible side effects, patientverbalized understanding. All questions were answered to the best of my ability. This discharge took greater then 30 minutes in planning, reviewing documentation, counseling the patient, and discussing with other team members." ASSESSMENT ASSESSMENT Hospital Course Improved Assessment Acute Chest pain rule out coronary artery disease : Troponin negative x3, cardiology consult by Dr Weller appreciated, treatment per ACS protocol Coronary artery disease status post PTCA x1 ESTIVEN (2015) echocardiogram 60 % ejection fraction, Cardiolite stress test neg Symptomatic bradycardia, secondary to beta denita and calcium channel denita Rule out structural heart disease Hypertension Dyslipidemia: Lipitor Hypothyroidism : Synthroid Prediabetes Anxiety GERD pantoprazole Date of Service: Jul 08, 2024 Billing Provider: AVERY HILL MD Common Visit Codes: [id number] DISCH DAY >30min AVERY HILL MD Jul 08, 2024 11:28
== END 2024-07-08 13:40 | disposition home or self-care (01) | DRG 303 ==
LOC: ER 07:02 → TELE 13:01 → TELE-EAST 21:40
PROVIDERS: ATTEND Family Medicine
DX: I25.10 Atherosclerotic heart disease of native coronary artery without angina pectoris (principal); K21.9 Gastro-esophageal reflux disease without esophagitis; E03.9 Hypothyroidism, unspecified; F41.9 Anxiety disorder, unspecified; T46.1X5A Adverse effect of calcium-channel blockers, initial encounter; I10 Essential (primary) hypertension; M81.0 Age-related osteoporosis without current pathological fracture; I44.30 Unspecified atrioventricular block; E78.00 Pure hypercholesterolemia, unspecified; E11.65 Type 2 diabetes mellitus with hyperglycemia; Z98.61 Coronary angioplasty status; Z83.3 Family history of diabetes mellitus; Z79.4 Long term (current) use of insulin; Z79.899 Other long term (current) drug therapy; Y92.89 Other specified places as the place of occurrence of the external cause; R00.1 Bradycardia, unspecified
CPT/HCPCS: 36415; 71045; 78452; 80048; 80053; 80061; 80307; 81001; 82962; 83036; 83735; 84443; 84484; 85025; 93005; 93017; 93306; 99291; G0378; J2470

== ENCOUNTER 2024-07-30 08:22 | Emergency (ER) | payer OTHER ==
[~2024-07-30] VITALS: Ht 149.9 cm; Wt 38.0 kg
--- NOTE | 2024-07-30 09:13 | DVH ---
XY CHEST TWO VIEWS ROUTINE CLINICAL HISTORY: cough COMPARISON: XY CHEST TWO VIEWS ROUTINE on DOS: 03/02/24 TECHNIQUE: Frontal and lateral view of the chest was obtained FINDINGS: Lines and Tubes: None Lungs: No focal consolidation. Pleura: No effusion. No pneumothorax. Cardiomediastinal contours: Unremarkable Bones: No acute osseous abnormality. IMPRESSION: 1. No acute cardiopulmonary disease.
[2024-07-30 09:39] LABS: COVID19 ANTIGEN SOFIA FIA NEGATIVE (NEGATIVE)
[2024-07-30 09:40] LABS: Rapid Influenza A Negative (Negative); Rapid Influenza B Negative (Negative)
--- NOTE | 2024-07-30 09:44 | ED.PDOC ---
History of Present Illness HPI Comments 73-year-old female presents with a chief complaint of throat pain, cough, and constipation. Patient mentions that her and her have similar symptoms and are both experiencing throat pain and persistent nonproductive cough. Patient also reports that she has not had a bowel movement in 7 days despite ef forts to make herself use the bathroom. Patient reports that she most recently ate prunes, but denies any bowel movements. Chief Complaint: Cough Time Seen by MD: 09:16 Reviewed Notes: Medications, Allergies Allergies: Coded Allergies: NO KNOWN ALLERGIES (Unverified , 11/28/23) Home Meds Active Scripts Sucralfate (CARAFATE) 1 Gm Tab, 1 GM PO BID for 30 Days, #60 TAB 1 Refill Prov:IDALIA ZAMBRANO MD 11/29/23 Reported Medications Diltiazem HCl Coated Beads (Diltiazem HCl ER) 120 Mg Cap, 1 CAP PO DAILY 11/28/23 Carvedilol (Carvedilol) 3.125 Mg Tab, 1 TAB PO BID 11/28/23 Pantoprazole Sodium Sesquihydr (Pantoprazole Sodium Dr) 40 Mg Tab, 1 TAB PO DAILY 11/28/23 Rosuvastatin Calcium (Rosuvastatin Calcium) 20 Mg Tab, 1 TAB PO HS 11/28/23 Irbesartan (IRBESARTAN) 300 Mg Tab, 1 TAB PO DAILY 11/28/23 Amlodipine Besylate (Amlodipine Besylate) 5 Mg Tab, 1 TAB PO DAILY 11/28/23 Isosorbide Mononitrate (Isosorbide Mononitrate Er) 30 Mg Tab, 1 TAB PO DAILY 11/28/23 Information Source: Patient Mode of Arrival: Ambulatory Severity: Moderate Timing: Days Duration: Since onset Prehospital treatment: None Past Medical History PAST MEDICAL HISTORY: Anxiety, GERD, High Lipids, HTN, Thyroid Surgical History: Denies all surgeries [employer] History: Denies all [employer] INST[employer]ER Hx Family History Family History: Reviewed,noncontributory to illness Social History Smoker: Non-Smoker Alcohol: Denies ETOH Use Drugs: Denies Drug Use Lives In: Home Constitutional: denies: chills, diaphoresis, fatigue, fever, malaise, sweats, weakness, others EENTM: reports: throat pain; denies: blurred vision, double vision, ear bleeding, ear discharge, ear drainage, ear pain, ear ringing, eye pain, eye redness, hearing loss, mouth pain, mouth swelling, nasal discharge, nose bleeding, nose congestion, nose pain, photophobia, tearing, throat swelling, voice changes, others Respiratory: reports: cough; denies: hemoptysis, orthopnea, SOB at rest, shortness of breath, SOB with excertion, stridor, wheezing, others Cardiovascular: denies: chest pain, dizzy spells, diaphoresis, Dyspnea on exertion, edema, irregular heart beat, left arm pain, lightheadedness, palpitations, PND, syncope, others Gastrointestinal: reports: constipated; denies: abdomen distended, abdominal pain, blood streaked bowels, diarrhea, dysphagia, difficulty swallowing, hematemesis, melena, nausea, poor appetite, poor fluid intake, rectal bleeding, rectal pain, vomiting, others Genitourinary: denies: abnormal vagina bleeding, burning, dyspareunia, dysuria, flank pain, frequency, hematuria, incontinence, pain, , vagina discharge, urgency, others Neurological: denies: dizziness, fainting, headache, left sided numbness, left sided weakness, numbness, paresthesia, pre-existing deficit, right sided numbness, right sided weakness, seizure, speech problems, tingling, tremors, weakness, others Musculoskeletal: denies: back pain, gout, joint pain, joint swelling, muscle pain, muscle stiffness, neck pain, others Integumetry: denies: bruises, change in color, change in hair/nails, dryness, laceration, lesions, lumps, rash, wounds, others Allergic/Immunocompromised: denies: Difficulty Healing, Frequent Infections, Hives, Itching, others Hematologic/Lymphatic: denies: anemia, blood clots, easy bleeding, easy bruising, swollen glands, others Endocrine: denies: excessive hunger, excessive sweating, excessive thirst, excessive urination, flushing, intolerance to cold, intolerance to heat, unexplained weight gain, unexplained weight loss, others Psychiatric: denies: anxiety, bipolar disorder, depression, hopeless, panic disorder, schizophrenia, sleepless, suicidal, others All Other Systems: Reviewed and Negative Physical Exam General Appearance: No Apparent Distress, Normal HEENT: Normal ENT Inspection, Pharynx Normal, TMs Normal Neck: Full Range of Motion, Non-Tender, Normal, Normal Inspection Respiratory: Chest Non-Tender, Lungs Clear, No Accessory Muscle Use, No Respiratory Distress, Normal Breath Sounds Cardiovascular: No Edema, No JVD, No Murmur, No Gallop, Normal Peripheral Pulses, Regular Rate/Rhythm Breast Exam: Deferred Gastrointestinal: No Organomegaly, Non Tender, No Pulsatile Mass, Normal Bowel Sounds, Soft Genitalia: Deferred Pelvic: Deferred Rectal: Deferred Extremities: No calf tenderness, Normal capillary refill, Normal inspection, Normal range of motion, Non-tender, No pedal edema Musculoskeletal : Apperance: Normal Neurologic: Alert, manager of production II-XII nml as Tested, No Motor Deficits, Normal Affect, Normal Mood, No Sensory Deficits Cerebellar Function: Normal Reflexes: Normal Skin: Dry, Normal Color, Warm Lymphatic: No Adenopathy Was a procedure done? Was a procedure done?: No Differential Dx Considerations may include: Pneumonia, viral syndrome, constipation X-Ray, Labs, Meds, VS Vital Signs Date Time Temp Pulse Resp B/P (MAP) Pulse Ox O2 Delivery O2 Flow Rate FiO2 07/30/24 09:56 98.2 90 18 121/74 (90) 98 98.2 07/30/24 08:41 Room Air 0 07/30/24 08:38 97.9 95 17 170/88 (115) 97 Lab Test 07/30/24 08:50 Range/Units Influenza Type A Antigen Negative Negative Influenza Type B Antigen Negative Negative SARS-CoV-2 Antigen (Rapid) Negative NEGATIVE Time of 1ST Reevaluation: 09:46 Reevaluation 1ST: Unchanged Patient Education/Counseling: Diagnosis, Treatment, Prognosis Family Education/Counseling: Diagnosis, Treatment, Prognosis Departure 1 Departure Time of Disposition: 10:30 (Patient likely with a viral syndrome. Patient also with constipation. We will discharge patient home with the patient for MiraLax and careful return precautions.) Impression: Primary Impression: Acute viral syndrome Additional Impression: Constipation Qualified Codes: K59.00 - Constipation, unspecified Disposition: HOME / SELF CARE / HOMELESS Condition: Stable Additional Instructions: You likely have a viral illness. It is important to stay well rested and well hydrated. You can take Tylenol and Motrin as needed for pain and fever. For a sore throat you can drink warm tea with honey. You can take [id number] pseudoephedrine for nasal congestion. You should follow up with your regular doctor within 1 week to ensure you are doing better. You also have constipation. You were prescribed MiraLax for constipation. Please take as directed. If your symptoms worsen or you have any other concerns please return to the emergency room. e-Prescriptions Polyethylene Glycol 3350 (Miralax Mix-in [place]) 17 Gm Pow 17 GM PO DAILY for 14 Days, #14 POW Prov: LORENZO ARCEO MD 07/30/24 Discharged With: Self Critical Care Note Critical Care Time?: No Stability Stability form required: No I personally scribed for LORENZO ARCEO MD ([email or web address]) on 07/30/24 at 09:44. Electronically submitted by Gasper [email or web address] ([email or web address]). LORENZO ARCEO MD Jul 30, 2024 09:44
[2024-07-30 09:56] VITALS: BP 121/74; PULSE 90; RESP 18; TEMP 98.2; O2SAT 98
[2024-07-30] MEDS ORDERED: POLY17PO5 PO (10:34)
== END 2024-07-30 10:55 | disposition home or self-care (01) ==
LOC: ER 08:22
DX: B34.9 Viral infection, unspecified (principal); K59.00 Constipation, unspecified; I10 Essential (primary) hypertension; K21.9 Gastro-esophageal reflux disease without esophagitis; E78.5 Hyperlipidemia, unspecified; E03.9 Hypothyroidism, unspecified; Z79.899 Other long term (current) drug therapy; Z20.822 Contact with and (suspected) exposure to COVID-19
CPT/HCPCS: 36415; 71046; 87426; 87804